=== PATIENT | male | born 1990 | race Caucasian/White ===

== ENCOUNTER 2017-05-25 02:18 | Emergency (ER) | payer OTHER ==
[~2017-05-25] VITALS: Ht 170.2 cm; Wt 70.3 kg
[~2017-05-25 02:18] MED LIST: ALBUTEROL SULF8.5 GM INH; AMOXICILLIN875 MG PO; COMBIVENT RESPIM4 GM INH; MELATONIN1 MG PO; NAPROSYN500 MG PO; NAPROXEN500 MG PO; NORCO 10-325 T1 EACH PO; NORCO 5-325 TA1 EACH PO; OMEPRAZOLE20 MG PO; PREDNISONE20 MG PO; PROVENTIL HFA6.7 GM INH; ULTRAM50 MG PO; VENTOLIN HFA18 GM IH
[2017-05-25] MEDS ORDERED: AMITRIPTYLINE H50 MG PO (02:31)
[2017-05-25] MEDS ORDERED: VENTOLIN HFA18 GM INH (02:32)
--- OUTSIDE RECORDS SUMMARY | 2017-05-25 02:34 | XMS ---
Demographics + + + | Address | [address] | | | [address] | | | [place] [address] | + + + | Preferred Language | Unknown | + + + | Marital Status | Unknown | + + + | Orthodox Affiliation | Unknown | + + + | Race | Unknown | + + + | Ethnic Group | Unknown | + + + Author + + + | Author | [facility] | + + + | Organization | [facility] | + + + | Address | [address] | | | [place] [address] | + + + | Phone | | + + + Care Team Providers + + + + | Care Credit Control Clerk Name | Role | Phone | + + + + Unavailable | Unavailable | + + + + PROBLEMS +---------+ + + +--------+ + + | Type | Condition | ICD9-CM | [id number] | Onset | Condition | SNOMED | | | | Code | Code | Dates | Status | Code | +---------+ + + +--------+ + + | Problem | Hip Pain | 719.45 | | | Active | 81251295 | +---------+ + + +--------+ + + | Problem | Depression | | F41.8 | | Active | 589289500 | | | with | | | | | | | | anxiety | | | | | | +---------+ + + +--------+ + + | Problem | Left ankle | | M25.572 | | Active | 298586082 | | | pain | | | | | | +---------+ + + +--------+ + + | 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 | | | | | | +---------+ + + +--------+ + + | Problem | Right hip | M25.551 | | | Active | 6154384952 | | | pain | | | | | 51020 | +---------+ + + +--------+ + + | Problem | Nausea | | R11.0 | | Active | 456266740 | +---------+ + + +--------+ + + | Problem | Asthma | | J45.909 | | Active | 867897479 | +---------+ + + +--------+ + + ALLERGIES No Information SOCIAL HISTORY Never Assessed PLAN OF CARE VITAL SIGNS MEDICATIONS Unknown Medications RESULTS No Results PROCEDURES No Known procedures IMMUNIZATIONS No Known Immunizations MEDICAL (GENERAL) HISTORY + + +--------+ | Type | Description | Date | + + +--------+ | Medical History | asthma | | + + +--------+ | Medical History | ADHD | | + + +--------+ | Medical History | migraine | | + + +--------+ | 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 He says he has no | | | | chronic medical conditions, | | | | does not have any | | | | allergies of which he is | | | | aware. He indicates that he | | | | just received his tetanus, | | | | so it is current as of | | | | about 5 minutes ago. | | + + +--------+ | Surgical History | tube in ears taken out and | | | | put back in | | + + +--------+ | Surgical History | T & A | | + + +--------+ | Hospitalization History | ER Visit- for Rt Wrist. | 11/30/16 | + + +--------+"
--- OUTSIDE RECORDS SUMMARY | 2017-05-25 02:34 | XMS ---
Demographics + + + | Address | [address] | | | [address] | | | [place] [address] | + + + | Preferred Language | Unknown | + + + | Marital Status | Unknown | + + + | Zoroastrian Affiliation | Unknown | + + + | Race | Unknown | + + + | Ethnic Group | Unknown | + + + Author + + + | Author | [facility] | + + + | Organization | [facility] | + + + | Address | [address] | | | [place] [address] | + + + | Phone | | + + + Care Team Providers + + + + | Care Finisher Machine Name | Role | Phone | + + + + Unavailable | Unavailable | + + + + PROBLEMS +---------+ + + +--------+ + + | Type | Condition | ICD9-CM | [id number] | Onset | Condition | SNOMED | | | | Code | Code | Dates | Status | Code | +---------+ + + +--------+ + + | Problem | Hip Pain | 719.45 | | | Active | 77108566 | +---------+ + + +--------+ + + | Problem | Depression | | F41.8 | | Active | 063395088 | | | with | | | | | | | | anxiety | | | | | | +---------+ + + +--------+ + + | Problem | Left ankle | | M25.572 | | Active | 290188320 | | | pain | | | | | | +---------+ + + +--------+ + + | 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
--- OUTSIDE RECORDS SUMMARY | 2017-05-25 02:34 | XMS ---
Demographics + + + | Address | [address] | | | [address] | | | [place] [address] | + + + | Preferred Language | Unknown | + + + | Marital Status | Unknown | + + + | Restoration Affiliation | Unknown | + + + | Race | Unknown | + + + | Ethnic Group | Unknown | + + + Author + + + | Author | [facility] | + + + | Organization | [facility] | + + + | Address | [address] | | | [place] [address] | + + + | Phone | | + + + Care Team Providers + + + + | Care Mannequin Maker Name | Role | Phone | + + + + Unavailable | Unavailable | + + + + PROBLEMS +---------+ + + +--------+ + + | Type | Condition | ICD9-CM | [id number] | Onset | Condition | SNOMED | | | | Code | Code | Dates | Status | Code | +---------+ + + +--------+ + + | Problem | Hip Pain | 719.45 | | | Active | 66831420 | +---------+ + + +--------+ + + | Problem | Depression | | F41.8 | | Active | 597593431 | | | with | | | | | | | | anxiety | | | | | | +---------+ + + +--------+ + + | Problem | Left ankle | | M25.572 | | Active | 426581206 | | | pain | | | | | | +---------+ + + +--------+ + + | 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
--- OUTSIDE RECORDS SUMMARY | 2017-05-25 02:34 | XMS ---
Demographics + + + | Address | [address] | | | [address] | | | [place] [address] | + + + | Preferred Language | Unknown | + + + | Marital Status | Unknown | + + + | Caodaism Affiliation | Unknown | + + + | Race | Unknown | + + + | Ethnic Group | Unknown | + + + Author + + + | Author | [facility] | + + + | Organization | [facility] | + + + | Address | [address] | | | [place] [address] | + + + | Phone | | + + + Care Team Providers + + + + | Care Airborne Sensor Specialist Name | Role | Phone | + + + + Unavailable | Unavailable | + + + + PROBLEMS +---------+ + + +--------+ + + | Type | Condition | ICD9-CM | [id number] | Onset | Condition | SNOMED | | | | Code | Code | Dates | Status | Code | +---------+ + + +--------+ + + | Problem | Hip Pain | 719.45 | | | Active | 29832584 | +---------+ + + +--------+ + + | Problem | Depression | | F41.8 | | Active | 710908397 | | | with | | | | | | | | anxiety | | | | | | +---------+ + + +--------+ + + | Problem | Left ankle | | M25.572 | | Active | 023071334 | | | pain | | | | | | +---------+ + + +--------+ + + | 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 | Unknown | Non Drug | Dec, | Unknown | | | | Allergy | | | + + + + +---------+ SOCIAL HISTORY No smoking Hx information available PLAN OF CARE + +---------+ | Activity | Details | + +---------+ +---+ | | +---+ + + + | Follow Up | 02/03/17 Reason:null | + + + | Pending Test | X ray : Spine Thoracic 2 view | + + + | Pending Test | X ray : Chest 2 views | + + + VITAL SIGNS + + + + | Height | 66 in | 2017-01-18 | + + + + | Weight | 166.2 lbs | 2017-01-18 | + + + + | BMI | 26.82 kg/m2 | 2017-01-18 | + + + + | Temperature | 98.9 degrees Fahrenheit | 2017-01-18 | + + + + | Heart Rate | 80 /min | 2017-01-18 | + + + + | Blood pressure systolic | 124 mm Hg | 2017-01-18 | + + + + | Blood pressure diastolic | 90 mm Hg | 2017-01-18 | + + + + MEDICATIONS + + + + + + + +--------+ | Medicati | Instruct | Dosage | Frequenc | Start | End Date | Duration | Status | | on | ions | | y | Date | | | | + + + + + + + +--------+ | Ondanset | Orally | 1 tablet | | Mar, | | | Active | | jenniffer 4 mg | every 8 | on the | | 2015 | | | | | | hrs as | tongue | | | | | | | | needed | and | | | | | | | | for | allow to | | | | | | | | nausea | | | | | | | | | or | dissolve | | | | | | | | vomiting | | | | | | | + + + + + + + +--------+ | Albutero | Inhalati | 3 ml | | 20 Apr, | | | Active | | l | on Three | | | 2015 | | | | | Sulfate | times a | | | | | | | | (2.5 | day PRN | | | | | | | | MG/3ML) | | | | | | | | | 0.083% | SOB/whee | | | | | | | | | zing | | | | | | | + + + + + + + +--------+ | Clonazep | Orally | 1 tablet | | Aug, | | 14 days | Active | | am 0.25 | daily | on the | | 2016 | | | | | MG | PRN | tongue | | | | | | | | anxiety | and | | | | | | | | | allow to | | | | | | | | | | | | | | | | | | dissolve | | | | | | + + + + + + + +--------+ | Combiven | Inhalati | 1 puff | 6h | Mar, | | 30 days | Active | | t | on Four | | | 2015 | | | | | Respimat | times a | | | | | | | | 20-100 | day | | | | | | | | MCG/ACT | | | | | | | | + + + + + + + +--------+ | ProAir | Inhalati | 2 puffs | 4h | | | 30 days | Active | | HFA 108 | on every | as | | | | | | | (90 | 4 hrs | needed | | | | | | | Base) | | | | | | | | | MCG/ACT | | | | | | | | + + + + + + + +--------+ | Tramadol | Orally | 1 tablet | 6h | 14 Angelo, | | | Active | | HCl 50 | every 6 | as | | 2017 | | | | | MG | hrs | needed | | | | | | + + + + + + + +--------+ | Keflex | Orally | 1 | 6h | | | | Active | | 500 MG | every 6 | capsule | | | | | | | | hrs | | | | | | | + + + + + + + +--------+ | Breo | Inhalati | 1 puff | 24h | 26 Angelo, | | | Active | | Ellipta | on Once | | | 2017 | | | | | 100-25 | a day | | | | | | | | MCG/INH | | | | | | | | + + + + + + + +--------+ | [place] | Orally | 1 tablet | 6h | 17 November, | | | Active | | 7.5-325 | every 6 | as | | 2017 | | | | | MG | hrs | needed | | | | | | + + + + + + + +--------+ | BusPIRon | Orally | 1 tablet | 12h | 24 Aug, | | 30 | Active | | e HCl 10 | Twice a | | | 2016 | | day(s) | | | mg | day | | | | | | | + + + + + + + +--------+ RESULTS No Results PROCEDURES + + + + + | Procedure | Date Ordered | Related Diagnosis | Body Site | + + + + + | Est Level IV | January 18, 2017 | | | | Extended | | | | + + + + + | DSCHRG MED/CURRENT | January 18, 2017 | | | | MED MERGE | | | | + + + + + | DOC MEDS VERIFIED | January 18, 2017 | | | | W/PT OR RE | | | | + + + + + IMMUNIZATIONS No Known Immunizations"
--- OUTSIDE RECORDS SUMMARY | 2017-05-25 02:34 | XMS ---
Demographics + + + | Address | [address] | | | [address] | | | [place] [address] | + + + | Preferred Language | Unknown | + + + | Marital Status | Unknown | + + + | Church Affiliation | Unknown | + + + | Race | Unknown | + + + | Ethnic Group | Unknown | + + + Author + + + | Author | [facility] | + + + | Organization | [facility] | + + + | Address | [address] | | | [place] [address] | + + + | Phone | | + + + Care Team Providers + + + + | Care Management Psychologist Name | Role | Phone | + + + + Unavailable | Unavailable | + + + + PROBLEMS +---------+ + + +--------+ + + | Type | Condition | ICD9-CM | [id number] | Onset | Condition | SNOMED | | | | Code | Code | Dates | Status | Code | +---------+ + + +--------+ + + | Problem | Hip Pain | 719.45 | | | Active | 35858073 | +---------+ + + +--------+ + + | Problem | Depression | | F41.8 | | Active | 485314978 | | | with | | | | | | | | anxiety | | | | | | +---------+ + + +--------+ + + | Problem | Left ankle | | M25.572 | | Active | 223887177 | | | pain | | | | | | +---------+ + + +--------+ + + | 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 | Unknown | Non Drug | Jan, | Unknown | | | | Allergy | | | + + + + +---------+ SOCIAL HISTORY No smoking Hx information available PLAN OF CARE + +---------+ | Activity | Details | + +---------+ +---+ | | +---+ + + + | Follow Up | 3 Months Reason:null | + + + VITAL SIGNS + + + + | Height | 66 in | 2017-02-04 | + + + + | Weight | 167.4 lbs | 2017-02-04 | + + + + | BMI | 27.02 kg/m2 | 2017-02-04 | + + + + | Temperature | 97.7 degrees Fahrenheit | 2017-02-04 | + + + + | Heart Rate | 80 /min | 2017-02-04 | + + + + | Blood pressure systolic | 120 mm Hg | 2017-02-04 | + + + + | Blood pressure diastolic | 83 mm Hg | 2017-02-04 | + + + + MEDICATIONS + + + + + + + +--------+ | Medicati | Instruct | Dosage | Frequenc | Start | End Date | Duration | Status | | on | ions | | y | Date | | | | + + + + + + + +--------+ | Clonazep | Orally | 1 tablet | | 01 Feb, | | 14 days | Active | [...] | 1 tablet | 12h | 24 Feb, | | 30 | Active | | [...] Inhalati | 1 puff | 6h | Sep, | | 30 days | Active | [...] | Orally | 1 tablet | | 08 Sep, | | | Active | | jenniffer [...] Inhalati | 1 puff | 24h | | | | Active | | Ellipta | on Once | | | | | | | | 100-25 | a day | | | | | | | | MCG/INH | | | | | | | | + + + + + + + +--------+ | Breo | Inhalati | 1 puff | 24h | Jan, | Jul, | 30 days | Active | | Ellipta | on Once | | | 2016 | 2018 | | | | 100-25 | a day | | | | | | | | MCG/INH | | | | | | | | + + + + + + + +--------+ | Tramadol | Orally | 1 tablet | 6h | Jan, | | | Active | | HCl 50 | every 6 | as | | 2016 | | | | [...] + + + + | Est Level III | February 04, 2017 | | | | Intermediate | | | | + + + + + | DSCHRG MED/CURRENT | February 04, 2017 | | | | MED MERGE | | | | + + + + + | DOC MEDS VERIFIED | February 04, 2017 | | | | W/PT OR RE | | | | + + + + + IMMUNIZATIONS No Known Immunizations"
--- OUTSIDE RECORDS SUMMARY | 2017-05-25 02:34 | XMS ---
Demographics + + + | Address | [address] | | | [address] | | | [place] [address] | + + + | Preferred Language | Unknown | + + + | Marital Status | Unknown | + + + | Spiritism Affiliation | Unknown | + + + | Race | Unknown | + + + | Ethnic Group | Unknown | + + + Author + + + | Author | [facility] | + + + | Organization | [facility] | + + + | Address | [address] | | | [place] [address] | + + + | Phone | | + + + Care Team Providers + + + + | Care Fretted Instrument Repairer Name | Role | Phone | + + + + Unavailable | Unavailable | + + + + PROBLEMS +---------+ + + +--------+ + + | Type | Condition | ICD9-CM | [id number] | Onset | Condition | SNOMED | | | | Code | Code | Dates | Status | Code | +---------+ + + +--------+ + + | Problem | Hip Pain | 719.45 | | | Active | 23743091 | +---------+ + + +--------+ + + | Problem | Depression | | F41.8 | | Active | 066420417 | | | with | | | | | | | | anxiety | | | | | | +---------+ + + +--------+ + + | Problem | Left ankle | | M25.572 | | Active | 925875116 | | | pain | | | | | | +---------+ + + +--------+ + + | 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
[2017-05-25] MEDS ORDERED: PREDNISONE20 MG PO (03:58)
[2017-08-02] MEDS ORDERED: TRAMADOL HCL50 MG PO (01:25)
[2017-08-02] MEDS ORDERED: PREDNISONE20 MG PO (02:53)
== END 2017-05-25 04:15 | disposition home or self-care (01) ==
LOC: ED 02:18
DX: J45.901 Unspecified asthma with (acute) exacerbation (principal); F17.200 Nicotine dependence, unspecified, uncomplicated
CPT/HCPCS: 94644; 99283; J7512

== ENCOUNTER 2017-06-18 02:29 | Emergency (ER) | payer OTHER ==
[~2017-06-18] VITALS: Ht 170.2 cm; Wt 99.8 kg
[~2017-06-18 02:29] MED LIST changes: +AMITRIPTYLINE H50 MG PO; +VENTOLIN HFA18 GM INH
[2017-06-18] MEDS ORDERED: NEURONTIN100 MG PO (02:38)
[2017-06-18] MEDS ORDERED: PREDNISONE20 MG PO (03:19)
[2017-06-18] MEDS ORDERED: IPRAT-ALBUT 0.5-3 ML INH (03:27)
[2017-08-02] MEDS ORDERED: TRAMADOL HCL50 MG PO (01:25)
[2017-08-02] MEDS ORDERED: PREDNISONE20 MG PO (02:53)
== END 2017-06-18 03:44 | disposition home or self-care (01) ==
LOC: ED 02:29
DX: J45.901 Unspecified asthma with (acute) exacerbation (principal); Z90.89 Acquired absence of other organs; Z79.899 Other long term (current) drug therapy
CPT/HCPCS: 94640; 99283; J7512

== ENCOUNTER → 2017-08-02 | Emergency (ER) | payer OTHER ==
[~2017-08-02] VITALS: Ht 170.2 cm; Wt 79.4 kg
[~2017-08-02] MED LIST changes: +IPRAT-ALBUT 0.5-3 ML INH; +KETOROLAC TROME10 MG PO; +MEDROL4 M1 PO; +NEURONTIN100 MG PO; +TRAMADOL HCL50 MG PO
== END ==
LOC: ED 01:12
DX: J45.901 Unspecified asthma with (acute) exacerbation (principal); Z87.891 Personal history of nicotine dependence; Z90.89 Acquired absence of other organs; Z79.899 Other long term (current) drug therapy
CPT/HCPCS: 94644; 99283; J7512

== ENCOUNTER 2017-08-22 00:55 | Emergency (ER) | payer OTHER ==
[~2017-08-22] VITALS: Ht 170.2 cm; Wt 79.4 kg
[~2017-08-22 00:55] MED LIST changes: -KETOROLAC TROME10 MG PO; -MEDROL4 M1 PO
--- OUTSIDE RECORDS SUMMARY | 2017-08-22 01:23 | XMS | Clinical Summary ---
Demographics + + + | Address | [address] | | | [place] [address] | + + + | Home Phone | | + + + | Preferred Language | Unknown | + + + | Marital Status | Single | + + + | Mandaen Affiliation | CAT | + + + | Race | White | + + + | Ethnic Group | Not or | + + + Author + + + | Organization | Unknown | + + + | Address | Unknown | + + + | Phone | Unavailable | + + + Support +------+ +---------+ + +---------+ | Name | Relationship | Address | Phone | +------+ +---------+ + +---------+ ECON | [address] | | [place] | [address] | +------+ +---------+ + +---------+ Care Team Providers + +------+ + | Care Video Game Maker Name | Role | Phone | + +------+ + PP | Unavailable | + +------+ + Source Comments CINTHIA is fully live on both [facility] and [facility] InPatient.[facility] Allergies No Known Allergies Current Medications Not on file Active Problems Not on file Social History + +-------+ +--------+------+ | Tobacco Use | Types | Packs/Day | Years | Date | | | | | Used | | + +-------+ +--------+------+ | Never Assessed | | | | | + +-------+ +--------+------+ + + + | Sex Assigned at | Date Recorded | | | | + + + | Not on file | | + + + Plan of Treatment + + + + + | Health Maintenance | Due Date | Last Done | Comments | + + + + + | INFLUENZA VACCINE | | | | | (FLU SHOT) | 7 | | | + + + + + Results Not on filefrom Last 3 Months"
--- OUTSIDE RECORDS SUMMARY | 2017-08-22 01:23 | XMS | Clinical Summary ---
Demographics + + + | Address | [address] | | | [place] [address] | + + + | Home Phone | | + + + | Preferred Language | Unknown | + + + | Marital Status | Single | + + + | Christianity Affiliation | CAT | + + + [...] [address] | | [place] | [address] | +------+ +---------+ + +---------+ Care Team Providers + +------+ + | Care Personal Driver Name | Role | Phone | + +------+ + PP | Unavailable | + +------+ + Source Comments CINTHIA is fully live on both [facility] Amb[facility] and [facility] InPatient.[facility] Allergies No Known Allergies Current [...]
[2017-08-22] MEDS ORDERED: MEDROL4 M1 PO (01:41)
== END 2017-08-22 01:45 | disposition home or self-care (01) ==
LOC: ED 00:55
DX: J45.31 Mild persistent asthma with (acute) exacerbation (principal); Z87.891 Personal history of nicotine dependence; Z79.899 Other long term (current) drug therapy
CPT/HCPCS: 94640; 99283; J7512

== ENCOUNTER 2017-08-30 09:09 | Emergency (ER) | payer OTHER ==
[~2017-08-30] VITALS: Ht 170.2 cm; Wt 79.4 kg
--- OUTSIDE RECORDS SUMMARY | ~2017-08-30 | XMS | Clinical Summary ---
Demographics + + + | Address | [address] | | | [place] [address] | + + + | Home Phone | | + + + | Preferred Language | Unknown | + + + | Marital Status | Single | + + + | Scientologist Affiliation | CAT | + + + [...] [address] | | [place] | [address] | +------+ +---------+ + +---------+ Care Team Providers + +------+ + | Care Safety Advisor Name | Role | Phone | + +------+ + PP | Unavailable | + +------+ + Source Comments CINTHIA is fully live on both [facility] Ambulatory and [facility] InPatient.[facility] Allergies No Known Allergies Current Medications Not [...]
--- OUTSIDE RECORDS SUMMARY | ~2017-08-30 | XMS | Clinical Summary ---
Demographics + + + | Address | [address] | | | [place] [address] | + + + | Home Phone | | + + + | Preferred Language | Unknown | + + + | Marital Status | Single | + + + | Temple Affiliation | CAT | + + + [...] [address] | | [place] | [address] | +------+ +---------+ + +---------+ Care Team Providers + +------+ + | Care Port Cdl A Driver Name | Role | Phone | + +------+ + PP | Unavailable | + +------+ + Source Comments CINTHIA is fully live on both [facility] Amb[facility] and [facility] InPatient.[facility] Allergies No Known Allergies Current [...]
[~2017-08-30 09:09] MED LIST changes: +MEDROL4 M1 PO
[2017-08-30] MEDS ORDERED: VENTOLIN HFA18 GM INH (09:32)
[2017-08-30] MEDS ORDERED: KETOROLAC TROME10 MG PO (09:32)
== END 2017-08-30 09:40 | disposition home or self-care (01) ==
LOC: ED 09:09
DX: Z76.0 Encounter for issue of repeat prescription (principal); J45.909 Unspecified asthma, uncomplicated; Z87.891 Personal history of nicotine dependence; Z79.899 Other long term (current) drug therapy
CPT/HCPCS: 99281

== ENCOUNTER → 2017-10-01 | Emergency (ER) | payer OTHER ==
[~2017-10-01] VITALS: Ht 170.2 cm; Wt 79.4 kg
[~2017-10-01] MED LIST changes: +KETOROLAC TROME10 MG PO
--- OUTSIDE RECORDS SUMMARY | 2017-10-01 03:21 | XMS | Clinical Summary ---
Demographics + + + | Address | [address] | | | [place] [address] | + + + | Home Phone | | + + + | Preferred Language | Unknown | + + + | Marital Status | Single | + + + | Jain Affiliation | CAT | + + + | Race | White | + + + | Ethnic Group | Not or | + + + Author + + + | Organization | Unknown | + + + | Address | Unknown | + + + | Phone | Unavailable | + + + Support + + + + + | Name | Relationship | Address | Phone | + + + + + | [place] [address]AC[address] | [address] | [address] | | | | | [place] | | | | | [address] | | + + + + + Care Team Providers + +------+ + | Care Towel Weaver Name | Role | Phone | + +------+ + PP | Unavailable | + +------+ + Source Comments CINTHIA is fully live on both [facility] Amb[facility] and [facility] InPatient.[facility] Allergies No Known Allergies Current [...]
--- OUTSIDE RECORDS SUMMARY | 2017-10-01 03:21 | XMS | Clinical Summary ---
Demographics + + + | Address | [address] | | | [place] [address] | + + + | Home Phone | | + + + | Preferred Language | Unknown | + + + | Marital Status | Single | + + + | Hindu Affiliation | CAT | + + + [...] [place] | | | | | [address] | | + + + + + Care Team Providers + +------+ + | Care Manager Of Applications Development Name | Role | Phone | + +------+ + PP | Unavailable | + +------+ + Source Comments CINTHIA is fully live on both [facility] Ambulatory and [facility] InPatient.[facility] Allergies No Known Allergies Current Medications [...]
== END ==
LOC: ED 02:32
DX: J45.901 Unspecified asthma with (acute) exacerbation (principal); Z87.891 Personal history of nicotine dependence; Z79.899 Other long term (current) drug therapy
CPT/HCPCS: 71046; 99283

== ENCOUNTER 2017-12-04 17:44 | Emergency (ER) | payer OTHER ==
[~2017-12-04] VITALS: Ht 170.2 cm; Wt 79.4 kg
[2017-12-04] MEDS ORDERED: KETOROLAC TROME10 MG PO (18:23)
== END 2017-12-04 18:33 | disposition home or self-care (01) ==
LOC: ED 17:44
DX: S93.401A Sprain of unspecified ligament of right ankle, initial encounter (principal); J45.909 Unspecified asthma, uncomplicated; Z79.899 Other long term (current) drug therapy; Z87.891 Personal history of nicotine dependence; X50.1XXA Overexertion from prolonged static or awkward postures, initial encounter; Y93.01 Activity, walking, marching and hiking
CPT/HCPCS: 73630; 99283

== ENCOUNTER 2019-01-04 15:34 | Emergency (ER) | payer OTHER ==
[~2019-01-04] VITALS: Ht 170.2 cm; Wt 79.4 kg
--- OUTSIDE RECORDS SUMMARY | 2019-01-04 15:36 | XMS ---
PreManage Notification: ADILSON JACOB Security Video Editor Events No recent Security Events currently on file CRITERIA MET - [facility] - Has Care Guidelines CARE PROVIDERS TAE CAMPOVERDE DO Primary Care Current PHONE: [phone] [facility] Current Orthopedic Surgery \T\ Fracture Clinic PHONE: Unknown Tamanna has no Care Guidelines for this patient. Care History Medical/Surgical 12/06/2017 [facility] Care Recommendation: This patient has had 5 or more Emergency Department visits in the last 12 months. Patient requires education on the scope and purpose of the ED as an acute care provider not a Primary Care Provider and should not be utilized for chronic conditions. If patient returns to ED please contact Community Health WorkerJenny at [phone]. These are guidelines and the provider should exercise clinical judgment when providing care. E.D. VISIT COUNT (12 MO.) 1 NATALIA Hilliard TOTAL 1 NOTE: Visits indicate total known visits. ED/UCC VISIT TRACKING (12 MO.) 01/04/2019 15:35 NATALIA Manzanares [place] TYPE: Emergency COMPLAINT: - FACIAL INJURIES INPATIENT VISIT TRACKING (12 MO.) No inpatient visits to display in this time frame [id number]
[2019-01-04] MEDS ORDERED: IBUPROFEN600 MG PO (16:55)
[2019-01-04] MEDS ORDERED: ULTRAM50 MG PO (16:55)
== END 2019-01-04 17:08 | disposition home or self-care (01) ==
LOC: ED 15:34
DX: S16.1XXA Strain of muscle, fascia and tendon at neck level, initial encounter (principal); S70.02XA Contusion of left hip, initial encounter; S00.83XA Contusion of other part of head, initial encounter; R07.89 Other chest pain; Y04.8XXA Assault by other bodily force, initial encounter; J45.909 Unspecified asthma, uncomplicated; Z87.891 Personal history of nicotine dependence; Z79.899 Other long term (current) drug therapy
CPT/HCPCS: 70450; 71045; 72040; 72170; 99284-25

== ENCOUNTER 2019-01-09 10:50 | Emergency (ER) | payer MEDICARE, OTHER ==
[~2019-01-09] VITALS: Ht 170.2 cm; Wt 81.7 kg
[~2019-01-09 10:50] MED LIST changes: +IBUPROFEN600 MG PO
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
[2019-01-09] MEDS ORDERED: INDOMETHACIN50 MG PO (11:51)
== END 2019-01-09 12:00 | disposition home or self-care (01) ==
LOC: ED 10:50
DX: S89.91XA Unspecified injury of right lower leg, initial encounter (principal); S89.92XA Unspecified injury of left lower leg, initial encounter; W01.198A Fall on same level from slipping, tripping and stumbling with subsequent striking against other object, initial encounter
CPT/HCPCS: 99283

== ENCOUNTER 2019-01-10 11:25 | Emergency (ER) | payer MEDICARE, OTHER ==
[~2019-01-10] VITALS: Ht 170.2 cm; Wt 81.7 kg
[~2019-01-10 11:25] MED LIST changes: +INDOMETHACIN50 MG PO
--- OUTSIDE RECORDS SUMMARY | 2019-01-10 11:28 | XMS ---
PreManage Notification: ADILSON JACOB Security Consolidation Accountant Events No recent Security Events currently on file CRITERIA MET - [facility] - Has Care Guidelines - [facility] - 2 Visits in 30 Days CARE PROVIDERS LUIS ENRIQUE العراقي Nurse Practitioner: 01/05/2019-Current PHONE: Unknown TAE CAMPOVERDE DO Primary Care Current PHONE: [phone] [facility] Other Current Orthopedic Surgery \T\ Fracture Clinic PHONE: Unknown Tamanna has no Care Guidelines for this patient. Care History Medical/Surgical 01/05/2019 [facility] - CHW CONTACTED PATIENT-DISCUSSED PCP USAGE AND NEED. - PATIENT HAD PCP LUIS ENRIQUE العراقي IN THE PAST BUT HAS NOT SEEN PROVIDER SINCE 2017. - CHW CONTACTED THE CLINIC REQUESTED TO HAVE LUIS ENRIQUE العراقي REVIEW TO SEE IF HE WOULD RE ESTABLISH CARE WITH PATIENT. 12/06/2017 [facility] Care Recommendation: This patient has had 5 or more Emergency Department visits in the last 12 months. Patient requires education on the scope and purpose of the ED as an acute care provider not a Primary Care Provider and should not be utilized for chronic conditions. If patient returns to ED please contact Community Health WorkerJenny at [phone]. These are guidelines and the provider should exercise clinical judgment when providing care. E.D. VISIT COUNT (12 MO.) 3 [facility]. TOTAL 3 NOTE: Visits indicate total known visits. ED/UCC VISIT TRACKING (12 MO.) 01/10/2019 11:25 [facility] [place] TYPE: Emergency COMPLAINT: - R LEG PAIN 01/09/2019 10:51 [facility] [place] TYPE: Emergency [...] level, initial encounter - Headache - Other breaker machine tender (current) drug therapy - Other chest pain - Contusion of left hip, initial encounter INPATIENT VISIT TRACKING (12 MO.) No inpatient visits to display in this time frame [email or web address]
== END 2019-01-10 14:23 | disposition home or self-care (01) ==
LOC: ED 11:25
DX: M25.572 Pain in left ankle and joints of left foot (principal); M79.651 Pain in right thigh

== ENCOUNTER 2019-01-10 11:43 | Emergency (ER) | payer MEDICARE, OTHER ==
[~2019-01-10] VITALS: Ht 170.2 cm; Wt 81.7 kg
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
== END 2019-01-10 13:48 | disposition home or self-care (01) ==
LOC: ED 11:43
DX: S79.921A Unspecified injury of right thigh, initial encounter (principal); W17.89XA Other fall from one level to another, initial encounter; J45.909 Unspecified asthma, uncomplicated; Z87.891 Personal history of nicotine dependence; Z79.899 Other long term (current) drug therapy
CPT/HCPCS: 73552; 99283-25

== ENCOUNTER 2019-06-07 06:02 | Emergency (ER) | payer MEDICARE, OTHER ==
[~2019-06-07] VITALS: Ht 170.2 cm; Wt 81.7 kg
--- OUTSIDE RECORDS SUMMARY | ~2019-06-07 | XMS | Encounter Summary ---
Demographics + + + | Address | [address] | | | [place] [address] | + + + | Home Phone | | + + + | Preferred Language | Unknown | + + + | Marital Status | Single | + + + | Adventism Affiliation | CAT | + + + | Race | White | + + + | Ethnic Group | Not or | + + + Author + + + | Author | [facility] | + + + | Organization | [facility] | + + + | Address | Unknown | + + + | Phone | Unavailable | + + + Support + + + + + | Name | Relationship | Address | Phone | + + + + + | Malinda Perdomo | ECON | [address] | | | | | [place] | | | | | [address] | | + + + + + Care Team Providers + +------+ + | Care Manager R D Name | Role | Phone | + +------+ + PCP | Unavailable | + +------+ + Encounter Details +--------+ + + + + | Date | Type | Department | Care Team | Description | +--------+ + + + + | 11/06/ | Results | Registration [id number] | | | | 1993 | Only | [address] | | | | | | [address] Mailcode: [id number] | | | | | | [place], [place] | | | | | | [address] | | | | | | [phone] | | | +--------+ + + + + Social History + +-------+ +--------+------+ | Tobacco [...] on file | | + + + + + + + | Job Start Date | Occupation | Industry | + + + + | Not on file | Not on file | Not on file | + + + + + + + + | Travel History | Travel Start | Travel End | + + + + + + | No recent travel history available. | + + documented as of this encounter Plan of Treatment Not on filedocumented as of this encounter Procedures + +--------+ + + + | Procedure Name | Priori | Date/Time | Associated Diagnosis | Comments | | | ty | | | | + +--------+ + + + | IMMUNOLOGY TESTS 2 | Routin | 11/09/1995 | | Results for this | | | e | 12:00 PM | | procedure are in the | | | | PDT | | results section. | + +--------+ + + + | CHEMISTRY TESTS 4 | Routin | 11/07/1995 | | Results for this | | | e | 11:45 AM | | procedure are in the | | | | PDT | | results section. | + +--------+ + + + | CBC TESTS 2 | Routin | 11/07/1995 | | Results for this | | | e | 11:45 AM | | procedure are in the | | | | PDT | | results section. | + +--------+ + + + | CHEMISTRY TESTS 2 | Routin | 11/07/1995 | | Results for this | | | e | 11:45 AM | | procedure are in the | | | | PDT | | results section. | + +--------+ + + + documented in this encounter Results IMMUNOLOGY TESTS 2 (11/09/1995 12:00 PM PDT) + +-------+ + + + | Component | Value | Ref Range | Performed | Pathologist | | | | | At | Signature | + +-------+ + + + | ROTAVIRUS | NEG | | | | | ASSAY | | | | | + +-------+ + + + + + | Specimen | + + | | + + + + + + + | Performing | Address | City/State/Zipcode | Phone Number | | Organization | | | | + + + + + | [facility] | [address] | [place] [address] | | | PATHOLOGY | [address] | | | + + + + + CBC TESTS 2 (11/07/1995 11:45 AM PDT) + + + + + + | Component | Value | Ref Range | Performed | Pathologist | | | | | At | Signature | + + + + + + | WHITE CELL | 8.8 | K/CU MM | | | | COUNT | | | | | + + + + + + | RED CELL | 3.47 (L) | M/CU MM | | | | COUNT | | | | | + + + + + + | HEMOGLOBIN | 8.8 (L) | GM/DL | | | + + + + + + | HEMATOCRIT | 26.2 (L) | % | | | + + + + + + | MCV | 75.3 (L) | FL | | | + + + + + + | MCH | 25.4 (L) | PG | | | + + + + + + | MCHC | 33.7 | GM/DL | | | + + + + + + | RDW | 13.4 | % | | | + + + + + + | PLATELET | 211. (L) | K/CU MM | | | | COUNT | | | | | + + + + + + | MPV | 7.8 | FL | | | + + + + + + + + | Specimen | + + | | + + + + + + + | Performing | Address | City/State/Zipcode | Phone Number | | Organization | | | | + + + + + | [facility] | [address] | [place] [address] | | | PATHOLOGY | [address] | | | + + + + + CHEMISTRY TESTS 2 (11/07/1995 11:45 AM PDT) + + + + + + | Component | Value | Ref Range | Performed | Pathologist | | | | | At | Signature | + + + + + + | CHOLESTEROL | 110. (L) | mg/dL | | | | (LAB) | | | | | + + + + + + + + | Specimen | + + | | + + + + + + + | Performing | Address | City/State/Zipcode | Phone Number | | Organization | | | | + + + + + | [facility] | [address] | [place], [place] [address] | | | PATHOLOGY | [address] | | | + + + + + CHEMISTRY TESTS 4 (11/07/1995 11:45 AM PDT) + + + + + + | Component | Value | Ref Range | Performed | Pathologist | | | | | At | Signature | + + + + + + | SODIUM, | 132. (L) | mmol/l | | | | PLASMA | | | | | | (LAB) | | | | | + + + + + + | POTASSIUM, | 4.9 (H) | mmol/l | | | | PLASMA | | | | | | (LAB) | | | | | + + + + + + | CHLORIDE, | 104. | mmol/l | | | | PLASMA | | | | | | (LAB) | | | | | + + + + + + | TOTAL CO2, | 20. (L) | mmol/l | | | | PLASMA | | | | | | (LAB) | | | | | + + + + + + | BUN, PLASMA | 7. | mg/dL | | | | (LAB) | | | | | + + + + + + | CREATININE | 0.5 | mg/dL | | | | PLASMA | | | | | | (LAB) | | | | | + + + + + + | GLUCOSE, | 272. (H) | mg/dL | | | | PLASMA | | | | | | (LAB) | | | | | + + + + + + | CALCIUM, | 8.7 | mg/dL | | | | PLASMA | | | | | | (LAB) | | | | | + + + + + + | MAGNESIUM,P | 2.1 | mg/dL | | | | LASMA | | | | | + + + + + + | PHOSPHORUS, | 2.9 (L) | mg/dL | | | | PLASMA | | | | | | (LAB) | | | | | + + + + + + | URIC ACID, | 3.6 | mg/dL | | | | PLASMA | | | | | | (LAB) | | | | | + + + + + + | AST(SGOT) | 40. | U/L | | | + + + + + + | ALT (SGPT) | 14. | U/L | | | + + + + + + | ALK PHOS | 265. | U/L | | | + + + + + + | LD TOTAL, | 352. | U/L | | | | PLASMA | | | | | + + + + + + | BILIRUBIN | 0.1 | mg/dL | | | | DIRECT | | | | | + + + + + + | BILIRUBIN | 0.6 | mg/dL | | | | TOTAL | | | | | + + + + + + | TOTAL | 5.6 (L) | GM/DL | | | | PROTEIN, | | | | | | PLASMA | | | | | | (LAB) | | | | | + + + + + + | ALBUMIN, | 3.4 (L) | GM/DL | | | | PLASMA | | | | | | (LAB) | | | | | + + + + + + + + | Specimen | + + | | + + + + + + + | Performing | Address | City/State/Zipcode | Phone Number | | Organization | | | | + + + + + | [facility] | [address] | [place] [address] | | | PATHOLOGY | [address] | | | + + + + + documented in this encounter Visit Diagnoses Not on filedocumented in this encounter"
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
--- OUTSIDE RECORDS SUMMARY | ~2019-06-07 | XMS | Encounter Summary ---
Demographics + + + | Address | [address] | | | [place] [address] | + + + | Home Phone | | + + + | Preferred Language | Unknown | + + + | Marital Status | Single | + + + | Gnosticist Affiliation | [id number] | + + + | Race | Unknown | + + + | Ethnic Group | Unknown | + + + Author + + + | Author | [facility] | | | and [place] | + + + | Organization | [facility] | | | and [place] | + + + | Address | Unknown | + + + | Phone | Unavailable | + + + Support + + +---------+ + | Name | Relationship | Address | Phone | + + +---------+ + | Yumiko Perdomo | ECON | Unknown | | + + +---------+ + Care Team Providers + +------+ + | Care Desizing Machine Operator Name | Role | Phone | + +------+ + | Juan Underwood NP | PCP | | + +------+ + Reason for Visit +--------+ + | Reason | Comments | +--------+ + | Asthma | Consult | +--------+ + Evaluate & Treat (Routine) +--------+--------+ + + + + | Status | Reason | Specialty | Diagnoses / | Referred By | Referred To | | | | | Procedures | Contact | Contact | +--------+--------+ + + + + | Closed | | Pulmonology | Diagnoses | Yasmine, | [place], | | | | | Unspecified | Juan Fournier | Yazan | | | | | asthma, | [address] | MD Josh | | | | | uncomplicate | [facility] | [address] | | | | | [address] | [address], | [place] | | | | | Procedures | [address] | [place], [place] | | | | | NEW PT | [place], | [address] Phone: | | | | | CONSULT | [place] [address] | [phone] | | | | | | Phone: | Fax: | | | | | | [phone] | [phone] | | | | | | Fax: | | | | | | | [phone] | | +--------+--------+ + + + + Encounter Details +--------+---------+ + + + | Date | Type | Department | Care Team | Description | +--------+---------+ + + + | 10/29/ | Office | [facility] | Yazan Martel | Needs flu shot | | 2018 | Visit | PULMONARY [address] | [address] | (Primary Dx); | | | | [place], | [place] | Moderate persistent | | | | [place] [address] | [place] [address] | asthma with acute | | | | [phone] | [phone] | exacerbation; Other | | | | | | tobacco product | | | | | | nicotine dependence, | | | | | | uncomplicated | +--------+---------+ + + + Social History + + + +--------+ + | Tobacco Use | Types | Packs/Day | Years | Date | | | | | Used | | + + + +--------+ + | Former Smoker | Cigarettes | 0.25 | | 1999 - 05/17/2017 | + + + +--------+ + + +------+---+---+ | Smokeless Tobacco: | Chew | | | | Current User | | | | + +------+---+---+ + + | Tobacco Cessation: Ready to Quit: Yes; Counseling Given: No | | Comments: 10/29/17: "I'm vaping 3% Nicotine" | + + + + +---------+ + | Alcohol Use | Drinks/Week | oz/Week | Comments | + + +---------+ + | Yes | | | | + + +---------+ + + + + | Sex Assigned at [...] + + documented as of this encounter Last Filed Vital Signs + + + + + | Vital Sign | Reading | Time Taken | Comments | + + + + + | Blood Pressure | 130/90 | 10/29/2017 12:56 PM | | | | | PDT | | + + + + + | Pulse | 90 | 10/29/2017 12:56 PM | | | | | PDT | | + + + + + | Temperature | 36.7 C (98.1 F) | 10/29/2017 12:56 PM | | | | | PDT | | + + + + + | Respiratory Rate | - | - | | + + + + + | Oxygen Saturation | 96% | 10/29/2017 12:56 PM | | | | | PDT | | + + + + + | Inhaled Oxygen | - | - | | | Concentration | | | | + + + + + | Weight | 86.1 kg (189 lb 13.1 | 10/29/2017 12:56 PM | | | | oz) | PDT | | + + + + + | Height | 170.2 cm (5' 7") | 10/29/2017 12:56 PM | | | | | PDT | | + + + + + | Body Mass Index | 29.73 | 10/29/2017 12:56 PM | | | | | PDT | | + + + + + documented in this encounter Plan of Treatment Not on filedocumented as of this encounter Visit Diagnoses + + | Diagnosis | + + | Needs flu shot - Primary Need for prophylactic vaccination and inoculation against | | influenza | + + | Moderate persistent asthma with acute exacerbation | + + | Other tobacco product nicotine dependence, uncomplicated | + + documented in this encounter
--- OUTSIDE RECORDS SUMMARY | ~2019-06-07 | XMS | Encounter Summary ---
Demographics + + + | Address | [address] [facility] [address] | | | [place] [address] | + + + | Home Phone | | + + + | Preferred Language | Unknown | + + + | Marital Status | Single | + + + | Lutheran Affiliation | 1041 | + + + | Race | Unknown | + + + | Ethnic Group | Unknown | + + + Author + + + | Author | [facility] | | | and [place] | + + + | Organization | [facility] | | | and [place] [...] Team Providers + +------+ + | Care Caddie Supervisor Name | Role | Phone | + +------+ + | Juan Underwood NP | PCP | | + +------+ + Encounter Details +--------+ + + + + | Date | Type | Department | Care Team | Description | +--------+ + + + + | 02/01/ | Imaging | [facility] | Provider, | | | 2017 | Exam | [facility] | [address] | | | | | IMAGING | Sergey SINGH | | | | | [phone] | [place] [address] | | +--------+ + + + + [...] | + +--------+ + + + | XR CHEST 2 VIEWS | Routin | 04/16/2016 | | Results for this | | | e | 4:45 PM | | procedure are in the | | | | PDT | | results section. | + +--------+ + + + documented in this encounter Results XR Chest 2 VW (04/16/2016 4:45 PM PDT) + + | Specimen | + + | | + + + + + | Narrative | Performed At | + + + | External films for comparison only - no result from [facility]. | [facility] | + + + + +---------+ + + | Performing | Address | City/State/Zipcode | Phone Number | | Organization | | | | + +---------+ + + | [facility] | | | | + +---------+ + + documented in this encounter Visit Diagnoses Not on filedocumented in this encounter"
--- OUTSIDE RECORDS SUMMARY | ~2019-06-07 | XMS | Encounter Summary ---
Demographics + + + | Address | [address] [facility] [address] | | | [place] [address] | + + + | Home Phone | | + + + | Preferred Language | Unknown | + + + | Marital Status | Single | + + + | Pentecostalism Affiliation | 1041 | + + + | Race | Unknown | + + + | Ethnic Group | Unknown | + + + Author + + + | Author | [facility] | | | and [place] | + + + | Organization | [facility] | | | and [place] [...] Team Providers + +------+ + | Care Workday Consultant Name | Role | Phone | + +------+ + | Juan Underwood NP | PCP | | + +------+ + Encounter Details +--------+ + + + + | Date | Type | Department | Care Team | Description | +--------+ + + + + | 11/08/ | Abstract | [facility] | Yazan Martel | | | 2017 | | [address]ULMONARY [address] | [address] | | | | | [place], | [place] | | | | | [place] [address] | [place] [address] | | | | | [phone] | [phone] | | | | | | | | +--------+ + + + + Social History + + + +--------+ + | Tobacco Use | Types | Packs/Day | Years | Date | | | | | Used | | + + + +--------+ + | Former Smoker | Cigarettes | 0.25 | | 199905/17/2017 | + + + +--------+ + + +------+---+---+ | Smokeless Tobacco: | Chew | | | | Current User | | | | + +------+---+---+ + + | Comments: 10/29/17: "I'm vaping 3% Nicotine" [...] Visit Diagnoses Not on filedocumented in this encounter
--- OUTSIDE RECORDS SUMMARY | ~2019-06-07 | XMS | Encounter Summary ---
Demographics + + + | Address | [address] | | | [place] [address] | + + + | Home Phone | | + + + | Preferred Language | Unknown | + + + | Marital Status | Single | + + + | Advent Affiliation | CAT | + + + | Race | White | + + + | Ethnic Group | Not or | + + + Author + + + | Author | [facility] | + + + | Organization | [facility] | + + + | Address | Unknown | + + + | Phone | Unavailable | + + + Support + + + + + | Name | Relationship | Address | Phone | + + + + + | Malinda Perdomo | ECON | [address] | | | | | [place] | | | | | [address] | | + + + + + Care Team Providers + +------+ + | Care Bilingual Receptionist Name | Role | Phone | + +------+ + PCP | Unavailable | + +------+ + Encounter Details +--------+ + + + + | Date | Type | Department | Care Team | Description | +--------+ + + + + | 11/28/ | Office | General Internal | Note, Outpatient | Progress Note | | 1995 | Visit-Trans | Medicine [address] | Clinic | | | | jose | [address] | | | | | | Mailcode: [id number] | | | | | | Outpatient Clinic | | | | | | [address] | | | | | | [place], [place] | | | | | | [address] | | | | | | [phone] | | | +--------+ + + + [...] + + documented as of this encounter Progress Notes Interface, Coffee Break Attendant In - 10/23/2006 1:12 AM PDT CLINIC DATE: 11/29/95 NEUROSURGERY CLINIC SUBJECTIVE: Lincoln suffered a depressed skull fracture associated with a scalp abrasion in mid-October when he was kicked in the head by a horse. He had a rather protracted admission to [facility] for observation, but when he began eating, he was discharged. Since returning home, Lincoln has had occasional headaches. His headaches seem to be subsiding. Likewise, Lincoln has been somnambulating. Fortunately, the house does not have any stairs. The frequency of somnambulation seems to be subsiding as well. Lincoln has had PE tubes in the past. He has a local core manager, whom he has an appointment to see later this month. EXAMINATION: Lincoln is cheerful and very busy examining the examining room. There is a ridge at the site of the skull fracture. The abrasion has healed without any sign of infection. The left optic nerve head is normal. I was unable to examine the right. Ocular movements are normal. The pupillary reactivity is normal. IMPRESSION: Skull fracture. Lincoln is still exhibiting some behavioral sequelae, but he is improving. PLAN: There are no neurosurgical recommendations. No return appointment was given. I encouraged mother to follow up with the core manager in [place]. Troy Summers Jr., M.D. Trim Crew Supervisor, Neurosurgery DEVANTE:abi cc: TROY CROWLEY MD [address] [place] [address] ELVIN ENGEL MD [facility] [address] [facility] [address] [facility] [address] RICK ABDALLA MD [address] [place] [address] [address] [place] [address] documented in this encounter Plan of Treatment Not on filedocumented as of this encounter Visit Diagnoses Not on filedocumented in this encounter"
--- OUTSIDE RECORDS SUMMARY | ~2019-06-07 | XMS | Encounter Summary ---
Demographics + + + | Address | [address] [facility] [address] | | | [place] [address] | + + + | Home Phone | | + + + | Preferred Language | Unknown | + + + | Marital Status | Single | + + + | Synagogue Affiliation | 1041 | + + + | Race | Unknown | + + + | Ethnic Group | Unknown | + + + Author + + + | Author | [facility] | | | and [place] | + + + | Organization | [facility] | | | and [place] | + + + | Address | Unknown | + + + | Phone | Unavailable | + + + Support + + +---------+ + | Name | Relationship | Address | Phone | + + +---------+ + | Yumiko Perdomo | ECON | Unknown | | + + +---------+ + Care Team Providers + +------+ + | Care Regulator Pin Inserter Name | Role | Phone | + +------+ + | Juan Underwood NP | PCP | | + +------+ + Reason for Visit + + + | Reason | Comments | + + + | Pulmonary Disease | 1 1/2 mo follow up | | Appointment | | + + + Encounter Details +--------+---------+ + + + | Date | Type | Department | Care Team | Description | +--------+---------+ + + + | 12/16/ | Office | [facility] | Yazan Martel | Moderate persistent | | 2018 | Visit | PULMONARY [address] | [address] | asthma not dependent | | | | [place], | [place] | on systemic | | | | [place] [address] | [place] [address] | steroids (Primary | | | | [phone] | [phone] | Dx) | | | | | | | +--------+---------+ + + + Social History [...] + + + | Blood Pressure | 130/98 | 12/16/2017 2:38 PM | | | | | PDT | | + + + + + | Pulse | 74 | 12/16/2017 2:38 PM | | | | | PDT | | + + + + + | Temperature | 36.7 C (98.1 F) | 12/16/2017 2:38 PM | | | | | PDT | | + + + + + | Respiratory Rate | - | - | | + + + + + | Oxygen Saturation | 97% | 12/16/2017 2:38 PM | | | | | PDT | | + + + + + | Inhaled Oxygen | - | - | | | Concentration | | | | + + + + + | Weight | 86.7 kg (191 lb 2.2 | 12/16/2017 2:38 PM | | | | oz) | PDT | | + + + + + | Height | 170.2 cm (5' 7") | 12/16/2017 2:38 PM | | | | | PDT | | + + + + + | Body Mass Index | 29.94 | 12/16/2017 2:38 PM | | | | | PDT | | + + + + + documented in this encounter Progress Notes Yazan Martel MD - 12/16/2017 2:40 PM [id number] with moderate persistent asthma improving on moderate dose inhaled HFA steroid through spacer I first saw him October 29, 2017 and he said he was going through to albuterol inhalers a celina h, the last month he is only needed one. He is using 2 puffs Flovent 220 HFA through spacer in his technique was pretty good, although not perfect. I showed him a couple of things. He is also been under stress because he has a new daughter who was born weighing 5 pounds b ut she is doing well and up to 8 pounds. However she keeps him up at night so he doesn't ge t a lot of sleep. 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 Other then for his daughter he is sleeping through the night and is not bringing up much sp utum and he is not had an exacerbation. Physical exam: Anxious attentive articulate young man in no distress. Weight 86.7 kg, bloo d pressure 130/98, pulse 74, temperature 98.1, oxygen saturation 97%, respirations 14. HEEN T shows reactive pupils, pink conjunctiva, normal oropharynx. The neck is normal. The lung miranda show prolonged expiratory phase but no wheezing. Cardiac rhythm is regular with no murmur or gallop. Abdomen is benign. Extremities show no edema. Laboratory evaluation: There is no new lab today. Impression and plan: 1. Moderate persistent asthma: I feel certain we can keep him off prednisone. I told him if he worsens at all to escalate to 4 separate puffs 3 times daily until he has been fine fo r a week, then he can reduce to 4 puffs twice daily for a week, before reducing to 3 puffs t wice daily for a week. He is to return in about 3-4 months. Hopefully he will not have an exacerbation during that time. She can come sooner when necessary. We spent 15 minutes, at least half in counseling. Wor d processing was used and I apologize for mistakes. Yazan Martel M.D. Pulmonary critical care documented i n this encounter Plan of Treatment Not on filedocumented as of this encounter Visit Diagnoses + + | Diagnosis | + + | Moderate persistent asthma not dependent on systemic steroids - Primary | + + documented in this encounter
--- OUTSIDE RECORDS SUMMARY | ~2019-06-07 | XMS | Encounter Summary ---
Demographics + + + | Address | [address] [facility] [address] | | | [place] [address] | + + + | Home Phone | | + + + | Preferred Language | Unknown | + + + | Marital Status | Single | + + + | Catholic Affiliation | 1041 | + + + | Race | Unknown | + + + | Ethnic Group | Unknown | + + + Author + + + | Author | [facility] | | | and [place] | + + + | Organization | [facility] | | | and [place] [...] Team Providers + +------+ + | Care Production Worker Name | Role | Phone | + +------+ + | Juan Underwood NP | PCP | | + +------+ + Encounter Details +--------+ + + + + | Date | Type | Department | Care Team | Description | +--------+ + + + + | 03/22/ | Abstract | [facility] | Yazan Martel | | | 2016 | | PULMONARY [address] | [address] | | | | | [place], | [place] | | | | | [place] [address] | [place] [address] | | | | | [phone] | [phone] | | | | | | | | +--------+ + + + + Social History + +-------+ +--------+------+ | Tobacco Use | Types | Packs/Day | Years | Date | | | | | Used | | + +-------+ +--------+------+ | Current Every Day | | 0.25 | | | | Smoker | | | | | + +-------+ +--------+------+ + +---+---+---+ | Smokeless Tobacco: | | | | | Never Used | | | | + +---+---+---+ + + +---------+ + | Alcohol Use [...]
--- OUTSIDE RECORDS SUMMARY | ~2019-06-07 | XMS | Clinical Summary ---
Demographics + + + | Address | [address] | | | [place] [address] | + + + | Home Phone | | + + + | Preferred Language | Unknown | + + + | Marital Status | Single | + + + | Anabaptist Affiliation | CAT | + + + [...] | Malinda Perdomo | ECON | [address] | | | | | [place] | | | | | [address] | | + + + + + Care Team Providers + +------+ + | Care Operator Helper Name | Role | Phone | + +------+ + PCP | Unavailable | + +------+ + Source Comments CINTHIA is fully live on both [facility] and [facility] InPatient.[facility] Allergies No Known Allergies Medications Not on file Active Problems Not [...] recent travel history available. | + + Last Filed Vital Signs Not on file Plan of Treatment + + + + + | Health Maintenance | Due Date | Last Done | Comments | + + + + + | Influenza (Flu) | | | | | vaccination (#1) | 9 | | | + + + + + | Pneumococcal | Aged Out | | No longer eligible | | vaccination | | | based on patient's | | | | | age to complete this | | | | | topic | + + + + + Results Not on filefrom Last 3 Months"
--- OUTSIDE RECORDS SUMMARY | ~2019-06-07 | XMS | Encounter Summary ---
Demographics + + + | Address | [address] | | | [place] [address] | + + + | Home Phone | | + + + | Preferred Language | Unknown | + + + | Marital Status | Single | + + + | Gnosticism Affiliation | CAT | + + + [...] [place] | | | | | [address] | | + + + + + Care Team Providers + +------+ + | Care Pasteurizing Machine Operator Name | Role | Phone | + +------+ + PCP | Unavailable | + +------+ + Encounter Details +--------+ + + + + | Date | Type | Department | Care Team | Description | +--------+ + + + + | 09/07/ | Transcribed | | Dictation, Other | Transcribed | | 2000 | | | | | +--------+ + [...] as of this encounter Progress Notes Interface, Ibm Bpm Developer In - 06/22/2006 3:03 AM [facility] [[email or web address]] [place] [address] [place], [place] [address] or Division of Pediatric Neurology [address] [facility], [address] [address] , September 07, 1999 Lemuel Carson M.D. [address] [place] [address] RE: LINCOLN PERDOMO MR #: [id number] Dear Dr. Carson: Lincoln Perdomo was seen for a neurologic consultation in the Pediatric Neurology Clinic at [facility] on August 25, 1999. As you know, Lincoln is a 6-1/2-year-old boy who was referred for evaluation of persistent headaches. His headaches seem to have begun approximately four years ago when he was hit in the head by a horse hoof. This resulted in a skull fracture to the right parietal region. His headaches have been slowly escalating over the past four years. They now are occurring on a weekly basis and frequently associated with vomiting for hours. When he falls asleep, there is some resolution of his headache. There is sensitivity to sound and light with his headaches. His mother will treat his headaches with Aleve with some improvement, but it has been difficult getting him to take the medication due to the vomiting. FAMILY HISTORY: Migraine in the father who also may have had a posttraumatic event as well as migraine in a maternal grandmother. PAST MEDICAL HISTORY: Notable for some allergic rhinitis as well as chronic otitis. He has been noted to have poor attention span and had to repeat kindergarten, and a diagnosis of an attention deficit is being entertained. On neurologic examination, there are no significant focal or lateralizing features. He does have some difficulty isolating fine motor movements which can often times be seen in children with attentional deficit disorders and learning disabilities. There is also some mild dystonic posturing of his outstretched hands. IMPRESSION: Lincoln Perdomo is a 6-1/2-year-old boy with a four-year history of escalating headaches. His headaches now are associated with significant vomiting, photophobia, and sensitivity to light. They resolve when he goes to sleep. His neurologic examination is normal with the exception of some mild signs which may be seen in children with learning disabilities and attentional deficit disorders. At this time, I believe this young man does indeed have migraine, which very well may have been precipitated by the head trauma four years ago. However, there is also a genetic predisposition on the father's side of the family. In terms of his medical management, due to him having weekly headaches which seem to be disrupting his ability to function fully, I believe he is a candidate for prophylaxis. Since there is a history of some allergic disease, I would tend to begin with a tricyclic rather than a beta amaris. I have therefore taken the liberty of placing Lincoln on Elavil 10 mg p.o. q.h.s. I have asked the family to call us in approximately two weeks to report whether or not there has been any improvement in his headaches. This is a small dose, and we can easily increase him to several factors higher. In addition for his severe headaches, we have given him a prescription for Imitrex, the 5 mg nasal spray. While the Aleve is an excellent option, unfortunately due to the significant vomiting, oral medication will not be the most effective way of trying to abort his headaches. Hopefully the Imitrex administered nasally will be effective in alleviating his acute exacerbations. In terms of his educational assessment and attention deficit hyperactivity disorder, we would like to refer him to the [facility], which is an advocacy program for the schools. If the family is not able to get the resources that they need to help with his educational assessment and placement, then further evaluation through the [facility] might be appropriate. Thank you for allowing me to participate in the care of this young man. If I may be of any further assistance, please do not hesitate to contact me. Sincerely, Russell Miller M.D. Professor of Pediatric Neurology Director of Pediatric Neurology TK / [place] [id number] / [id number] / [id number] / [id number] signed by Interface, Ibm Bpm Developer In at 06/22/2006 3:03 AM PSTdocume nted in this encounter Plan of Treatment Not on filedocumented as of this encounter Visit Diagnoses Not on filedocumented in this encounter"
--- OUTSIDE RECORDS SUMMARY | ~2019-06-07 | XMS | Encounter Summary ---
Demographics + + + | Address | [address] [facility] [address] | | | [place] [address] | + + + | Home Phone | | + + + | Preferred Language | Unknown | + + + | Marital Status | Single | + + + | Baptism Affiliation | 1041 | + + + | Race | Unknown | + + + | Ethnic Group | Unknown | + + + Author + + + | Author | [facility] | | | and [place] | + + + | Organization | [facility] | | | and [place] | [...] Team Providers + +------+ + | Care Envelope Addresser Name | Role | Phone | + [...] [address] | | | | | [phone] | [place] [address] | | +--------+ + + + + [...]
--- OUTSIDE RECORDS SUMMARY | ~2019-06-07 | XMS | Encounter Summary ---
Demographics + + + | Address | [address] | | | [place] [address] | + + + | Home Phone | | + + + | Preferred Language | Unknown | + + + | Marital Status | Single | + + + | Baptism Affiliation | CAT | + + + [...] [place] | | | | | [address] | | + + + + + Care Team Providers + +------+ + | Care Ship Construction Teacher Name | Role | Phone | + +------+ + PCP | Unavailable | + +------+ + Encounter Details +--------+ + + + + | Date | Type | Department | Care Team | Description | +--------+ + + + + | 11/06/ | Results | | Other, Faculty | | | 1996 | Only | | [phone] | | +--------+ + + + + [...] | + +--------+ + + + | CT HEAD WO CONTRAST | Urgent | 11/07/1995 | | Results for this | | | | 5:16 AM | | procedure are in the | | | | PDT | | results section. | + +--------+ + + + documented in this encounter Results CT HEAD WO CONTRAST (11/07/1995 5:16 AM PDT) + + + + + + | Component | Value | Ref Range | Performed | Pathologist | | | | | At | Signature | + + + + + + | CT HEAD WO | Radiologist 1: JANET, | | | | | CONTRAST | JESUS Nguyen, | | | | | | M.DErik-Radiologist 2: | | | | | | JESUS GONZALES, | | | | | | M.DLINCOLN BROWN | | | | | | | | | | | | | | | | | | [birth year]26 | | | | | | CRANIAL CT DONE ON | | | | | | 11/07/95 AT | | | | | | 05:16DICTATED ON | | | | | | 11/09/95 TECHNIQUE: | | | | | | Contiguous 5 | | | | | | millimeter axial images | | | | | | were obtained throughthe | | | | | | posterior fossa with | | | | | | the remainder of the | | | | | | cranium evaluated with10 | | | | | | millimeter imaging. | | | | | | FINDINGS: There is a | | | | | | questionable area of | | | | | | decreased | | | | | | attenuationinvolving the | | | | | | right temporal lobe. | | | | | | This may represent a | | | | | | small area ofcontusion. | | | | | | No evidence of | | | | | | hemorrhage is present. | | | | | | This portion of | | | | | | thebrain directly | | | | | | underlies an area of | | | | | | skull fracture involving | | | | | | the rightparietal bone. | | | | | | There is elevation of | | | | | | the fragment of | | | | | | approximately4-5 | | | | | | millimeters and slight | | | | | | overriding of the | | | | | | fragments at | | | | | | theposterior margin. | | | | | | The remainder of the | | | | | | brain and ventricles | | | | | | arewithout evidence of | | | | | | additional injury. | | | | | | IMPRESSION: Possible | | | | | | contusion of right | | | | | | temporal lobe underlying | | | | | | displaced | | | | | | skullfracture. END OF | | | | | | IMPRESSION: | | | | + + + + + + + + | Specimen | + + | | + + + + + | Narrative | Performed At | + + + | Ordered by VISHNU POWELL | | + + + + +---------+ + + | Performing | Address | City/State/Zipcode | Phone Number | | Organization | | | | + +---------+ + + | [facility] | | | | | RADIOLOGY | | | | + +---------+ + + documented in this encounter Visit Diagnoses Not on filedocumented in this encounter"
--- OUTSIDE RECORDS SUMMARY | ~2019-06-07 | XMS | Encounter Summary ---
Demographics + + + | Address | [address] | | | [place] [address] | + + + | Home Phone [...] Author + + + | Author | [facility] | + + + | Organization | [facility] | + + + | Address | Unknown | + + + | Phone | Unavailable | + + + Support + + + + + | Name | Relationship | Address | Phone | + + + + + | Malinda Perdomo | ECON | [address] | | | | | [place] | | | | | [address] | | + + + + + Care Team Providers + +------+ + | Care Cloud Systems Architect Name | Role | Phone | + [...] [id number] | | | | | | [place], [place] | | | | | | [address] | | | | | | [phone] | | | +--------+ + + + [...] | + + + + + | [facility] | [address] | [place] [address] | | | PATHOLOGY | [address] [...] | + + + + + | [facility] | [address] | [place] [address] | | | PATHOLOGY | [address] [...] | + + + + + | [facility] | [address] | [place], [place] [address] | | | PATHOLOGY | [address] [...] | + + + + + | [facility] | [address] | [place] [address] | | | PATHOLOGY | [address] | | | + + + + + documented in this encounter Visit Diagnoses Not on filedocumented in this encounter"
--- OUTSIDE RECORDS SUMMARY | ~2019-06-07 | XMS | Encounter Summary ---
Demographics + + + | Address | [address] | | | [place] [address] | + + + | Home Phone | | + + + | Preferred Language | Unknown | + + + | Marital Status | Single | + + + | Sikhism Affiliation | CAT | + + + | Race | White | + + + | Ethnic Group | Not or | + + + Author + + + | Author | [facility] | + + + | Organization | [facility] | + + + | Address | Unknown | + + + | Phone | Unavailable | + + + Support + + + + + | Name | Relationship | Address | Phone | + + + + + | Malinda Perdomo | ECON | [address] | | | | | [place] | | | | | [address] | | + + + + + Care Team Providers + +------+ + | Care Java Tech Name | Role | Phone | + +------+ + PCP | Unavailable | + +------+ + Encounter Details +--------+ + + + + | Date | Type | Department | Care Team | Description | +--------+ + + + + | 11/28/ | Office | General Internal | Note, Outpatient | Progress Note | | 1995 | Visit-Trans | Medicine [address] | Clinic | | | | jose | [address] | | | | | | Mailcode: [id number] | | | | | | Outpatient Clinic | | | | | | [address] | | | | | | [place], [place] | | | | | | [address] | | | | | | [phone] | | | +--------+ + + + [...] as of this encounter Progress Notes Interface, Stull Installer In - 10/23/2006 1:12 AM PDT CLINIC DATE: 11/29/95 NEUROSURGERY CLINIC SUBJECTIVE: Lincoln suffered a depressed skull fracture associated with a scalp abrasion in mid-October when he was kicked in the head by a horse. He had a rather protracted admission to [facility] for observation, but when he began eating, he was discharged. Since returning home, Lincoln has had occasional headaches. His headaches seem to be subsiding. Likewise, Lincoln has been somnambulating. Fortunately, the house does not have any stairs. The frequency of somnambulation seems to be subsiding as well. Lincoln has had PE tubes in the past. He has a local photo finisher, whom he has an appointment to see [...] encouraged mother to follow up with the photo finisher in [place]. Troy Summers Jr., M.D. Patient Scheduling Manager, Neurosurgery DEVANTE:abi cc: TROY CROWLEY MD [address] [place] [address] ELVIN ENGEL MD [facility] [address] [facility] [address] [facility] [address] RICK ABDALLA MD [address] [place] [address] [address] [place] [address] documented in this encounter Plan of Treatment Not on filedocumented as of this encounter Visit Diagnoses Not on filedocumented in this encounter"
--- OUTSIDE RECORDS SUMMARY | ~2019-06-07 | XMS | Clinical Summary ---
Demographics + + + | Address | [address] [facility] | | | [place] [address] | + + + | Home Phone | | + + + | Preferred Language | Unknown | + + + | Marital Status | Single | + + + | Jehovah'S Witness Affiliation | 1041 | + + + | Race | Unknown | + + + | Ethnic Group | Unknown | + + + Author + + + | Author | [facility] | | | and [place] | + + + | Organization | [facility] | | | and [...] Team Providers + +------+ + | Care Game Farm Helper Name | Role | Phone | + +------+ + | Juan Underwood PLASTICS DESIGN ENGINEER | PCP | | + +------+ + Allergies No Known Allergies Medications + + + +---------+------+------+-------+ | Medication | Sig | Dispensed | Refills | Star | End | Statu | | | | | | t | Date | s | | | | | | Date | | | + + + +---------+------+------+-------+ | PROAIR HFA 108 (90 | Inhale 2 puffs into | | 0 | | | Activ | | Base) MCG/ACT | the lungs every 4 | | | | | e | | inhaler | hours as needed for | | | | | | | | Wheezing or | | | | | | | | Shortness of Breath. | | | | | | + + + +---------+------+------+-------+ | albuterol 2.5 mg/3 | Take 2.5 mg by | | 0 | | | Activ | | mL nebulizer | nebulization every 4 | | | | | e | | solution | hours as needed for | | | | | | | | Wheezing, Shortness | | | | | | | | of Breath or | | | | | | | | Increased Work of | | | | | | | | Breathing. | | | | | | + + + +---------+------+------+-------+ | fluticasone | Inhale 4 puffs into | | 0 | | | Activ | | (FLOVENT HFA) 220 | the lungs 2 times | | | | | e | | mcg/puff inhaler | daily. | | | | | | + + + +---------+------+------+-------+ | busPIRone (BUSPAR) | Take 1 tablet by | | 0 | | | Activ | | 10 MG tablet | mouth Daily. | | | | | e | + + + +---------+------+------+-------+ | citalopram | Take 1 tablet by | | 0 | | | Activ | | (CELEXA) 40 mg | mouth Daily. | | | | | e | | tablet | | | | | | | + + + +---------+------+------+-------+ | gabapentin | Take 300 mg by mouth | | 0 | | | Activ | | (NEURONTIN) 300 mg | Daily as needed. | | | | | e | | capsule | | | | | | | + + + +---------+------+------+-------+ | ketorolac | Take 1 tablet by | | 0 | | | Activ | | (TORADOL) 10 MG | mouth as needed. | | | | | e | | tablet | | | | | | | + + + +---------+------+------+-------+ | naproxen | Take 1 tablet by | | 0 | | | Activ | | (NAPROSYN) 500 mg | mouth 2 times daily. | | | | | e | | tablet | | | | | | | + + + +---------+------+------+-------+ | omeprazole | Take 1 tablet by | | 0 | | | Activ | | (PRILOSEC) 10 mg | mouth 3 times daily | | | | | e | | capsule | as needed. | | | | | | + + + +---------+------+------+-------+ | prazosin | Take 1 capsule by | | 0 | | | Activ | | (MINIPRESS) 1 mg | mouth nightly. | | | | | e | | capsule | | | | | | | + + + +---------+------+------+-------+ Active Problems Not on file Immunizations + + + + | Name | Administration Dates | Next Due | + + + + | INFLUENZA PF | 10/29/2017 | | | QUAD(PED/ADOL/ADULT) | | | | ,PSKT or VIAL | | | + + + + Family History + + +------+ + | Medical History | Relation | Name | Comments | + + +------+ + | Hypertension | Father | | | + + +------+ + | Glaucoma | Mother | | | + + +------+ + + +------+--------+ + | Relation | Name | Status | Comments | + +------+--------+ + | Father | | Alive | | + +------+--------+ + | Mother | | Alive | | + +------+--------+ + Social History + + + +--------+ [...] | + + Last Filed Vital Signs + + + [...] | | + + + + + Plan of Treatment + + + + + | Health Maintenance | Due Date | Last Done | Comments | + + + + + | Vaccine: | | | | | Dtap/Tdap/Td (1 - | 2 | | | | Tdap) | | | | + + + + + | Vaccine: Influenza | | 10/29/2017 | | | (#1) | 9 | | | + + + + + Results Not on filefrom Last 3 Months Insurance + +--------+ +--------+ +---------+--------+ | Payer | Benefi | Subscriber | Effect | Phone | Address | Type | | | t Plan | ID | nicolasa | | | | | | / | | Dates | | | | | | Group | | | | | | + +--------+ +--------+ +---------+--------+ | GEHA | GEHA | [id number] | 01/30/20 | [phone] | | PPO | | | AETNA | | 17-Pre | 6 | | | | | PPO | | sent | | | | + +--------+ +--------+ +---------+--------+ | [place] | MEDICA | [id number] | | [phone] | | Medica | | | [place] | | 017-Pr | 2 | | id | | | PLUS | | esent | | | | + +--------+ +--------+ +---------+--------+ + +--------+ +--------+ + + | Guarantor Name | Accoun | Relation to | Date | Phone | Billing Address | | | t Type | Patient | of | | | | | | | | | | + +--------+ +--------+ + + | Lincoln Perdomo | Person | Self [birth year] | [address] | | | al/Fam | | 1991 | [phone] | [address] [place] | | | [place] | | | [address] (Home) | [phone] | + +--------+ +--------+ + + Advance Directives + + + + + | Type | Date Recorded | Patient | Explanation | | | | Inventory Controller | | + + + + + | Power of | | | | | Biologist | | | | + + + + + | Advance | | | | | Directive | | | | + + + + +
--- OUTSIDE RECORDS SUMMARY | ~2019-06-07 | XMS | Encounter Summary ---
Demographics + + + | Address | [address] [facility] [address] | | | [place] [address] | + + + | Home Phone | | + + + | Preferred Language | Unknown | + + + | Marital Status | Single | + + + | Temple Affiliation | 1041 | + + + | Race | Unknown | + + + | Ethnic Group | Unknown | + + + Author + + + | Author | [facility] | | | and [place] | + + + | Organization | [facility] | | | and [place] | [...] Team Providers + +------+ + | Care Movie Theater Usher Name | Role | Phone | + [...] | | | | | asthma, | PASSENGER INTERLINE CLERK [address] | MD Josh | | | | | uncomplicate | [address] | [address] | | | | | d | [address], | [place] | | | | | Procedures | [address] | [place], [place] | | | | | NEW PT | [place], | [address] Phone: | | | | | CONSULT | [place] [address] | [phone] | | | | | | Phone: | Fax: | | | | | | [phone] | [phone] | | | | | | Fax: | | | | | | | [phone] | | +--------+--------+ + + + + [...] | (Primary Dx); | | | | [place], | [place] | Moderate persistent | | | | [place] [address] | [place] [address] | asthma with acute | | | | [phone] | [phone] | exacerbation; Other | | | | [...]
--- OUTSIDE RECORDS SUMMARY | ~2019-06-07 | XMS | Encounter Summary ---
Demographics + + + | Address | [address] [facility] | | | [place] [address] | + + + | Home Phone | | + + + | Preferred Language | Unknown | + + + | Marital Status | Single | + + + | Holiness Affiliation | 1041 | + + + | Race | Unknown | + + + | Ethnic Group | Unknown | + + + Author + + + | Author | [facility] | | | and [place] | + + + | Organization | [facility] | | | and [place] [...] Team Providers + +------+ + | Care House Detective Name | Role | Phone | + +------+ + PCP | Unavailable | + +------+ + Encounter Details +--------+ + + + + | Date | Type | Department | Care Team | Description | +--------+ + + + + | 11/05/ | Hospital | [facility] | | | | 1995 | Encounter | MED CTR EMERGENCY | | | | | | CENTER [address] | | | | | | [place] | | | | | | [address] | | | | | | [phone] | | | +--------+ + + + [...]
--- OUTSIDE RECORDS SUMMARY | ~2019-06-07 | XMS | Encounter Summary ---
Demographics + + + | Address | [address] [facility] | | | [place] [address] | + + + | Home Phone | | + + + | Preferred Language | Unknown | + + + | Marital Status | Single | + + + | Pentecostal Affiliation | 1041 | + + + | Race | Unknown | + + + | Ethnic Group | Unknown | + + + Author + + + | Author | [facility] | | | and [place] | + + + | Organization | [facility] | | | and [place] [...] Team Providers + +------+ + | Care Director Of Labor Relations Name | Role | Phone | + +------+ + | Juan Underwood NP | PCP | | + +------+ + Encounter Details +--------+ + + + + | Date | Type | Department | Care Team | Description | +--------+ + + + + | 01/29/ | Imaging | [facility] | Provider, | | | 2017 | Exam | MED CTR EXTERNAL | MD [address] | | | | | IMAGING | [address] | | | | | [phone] | [place] [address] | | +--------+ + + + + [...] + +--------+ + + + | XR THORACIC SPINE 3 | Routin | 01/18/2017 | | Results for this | | VW | e | 12:00 PM | | procedure are in the | | | | PDT | | results section. | + +--------+ + + + documented in this encounter Results XR Thoracic Spine 3 Vw (01/18/2017 12:00 PM PDT) + + | Specimen | [...]
--- OUTSIDE RECORDS SUMMARY | ~2019-06-07 | XMS | Encounter Summary ---
Demographics + + + | Address | [address] [facility] | | | [place] [address] | + + + | Home Phone | | + + + | Preferred Language | Unknown | + + + | Marital Status | Single | + + + | Bahai Affiliation | 1041 | + + + | Race | Unknown | + + + | Ethnic Group | Unknown | + + + Author + + + | Author | [facility] | | | and [place] | + + + | Organization | [facility] | | | and [place] [...] Providers + +------+ + | Care Production Control Analyst Name | Role | Phone | + +------+ + | Juan Underwood NP | PCP | | + +------+ + Reason for Visit + + + | Reason | Comments | + + + | Appointment | | + + + Encounter Details +--------+ + + + + | Date | Type | Department | Care Team | Description | +--------+ + + + + | 10/12/ | Telephone | [facility] | Yazan Martel | Appointment | | 2017 | | PULMONARY [address] | MD [address] | | | | | [place], | [place] | | | | | [place] [address] | [place] [address] | | | | | [phone] | [phone] | | | | | | | [...]
--- OUTSIDE RECORDS SUMMARY | ~2019-06-07 | XMS | Encounter Summary ---
Demographics + + + | Address | [address] [facility] | | | [place] [address] | + + + | Home Phone | | + + + | Preferred Language | Unknown | + + + | Marital Status | Single | + + + | Adventist Affiliation | 1041 | + + + | Race | Unknown | + + + | Ethnic Group | Unknown | + + + Author + + + | Author | [facility] | | | and [place] | + + + | Organization | [facility] | | | and [...] Team Providers + +------+ + | Care Parish Visitor Name | Role | Phone | + +------+ + | Juan Underwood NP | PCP | | + +------+ + Encounter Details +--------+ + + + + | Date | Type | Department | Care Team | Description | +--------+ + + + + | 01/29/ | Imaging | [facility] | Provider, | | | 2017 | Exam | MED CTR EXTERNAL | [address] | | | | | IMAGING | [address] | | | | | [phone] | [place] [address] | | +--------+ + + + + [...] +--------+ + + + | XR CHEST AP PORTABLE | Routin | 07/29/2009 | | Results for this | | | e | 2:50 PM | | procedure are in the | | | | PST | | results section. | + +--------+ + + + documented in this encounter Results XR Chest AP Portable (07/29/2009 2:50 PM PST) + + | Specimen | + + | | + + + + + | Narrative | Performed At | + + + | External films for comparison only - no result from [facility]. | [facility] | + + + + +---------+ + + | Performing | Address | City/State/Zipcode | Phone Number | | Organization | | | | + +---------+ + + | [facility] | | | | + +---------+ + + documented in this encounter Visit Diagnoses Not on filedocumented in this encounter"
--- OUTSIDE RECORDS SUMMARY | ~2019-06-07 | XMS | Encounter Summary ---
Demographics + + + | Address | [address] [facility] | | | [place] [address] | + + + | Home Phone | | + + + | Preferred Language | Unknown | + + + | Marital Status | Single | + + + | Islam Affiliation | 1041 | + + + | Race | Unknown | + + + | Ethnic Group | Unknown | + + + Author + + + | Author | [facility] | | | and [place] | + + + | Organization | [facility] | | | and [place] [...] Team Providers + +------+ + | Care Hr Shared Services Consultant Name | Role | Phone | [...] [address] | | | | | [phone] | [place] [address] | | +--------+ + + + + [...] XR CHEST 2 VIEWS | Routin | 10/11/2015 | | Results for this | | | e | 8:50 AM | | procedure are in the | | | | PDT | | results section. | + +--------+ + + + documented in this encounter Results XR Chest 2 VW (10/11/2015 8:50 AM PDT) + + | Specimen | + [...]
--- OUTSIDE RECORDS SUMMARY | ~2019-06-07 | XMS | Encounter Summary ---
Demographics + + + | Address | [address] [facility] | | | [place] [address] | + + + | Home Phone | | + + + | Preferred Language | Unknown | + + + | Marital Status | Single | + + + | Jain Affiliation | 1041 | + + + | Race | Unknown | + + + | Ethnic Group | Unknown | + + + Author + + + | Author | [facility] | | | and [place] | + + + | Organization | [facility] | | [...] Team Providers + +------+ + | Care Child Care Group Leader Name | Role | Phone | + +------+ + | Juan Underwood NP | PCP | | + +------+ + Encounter Details +--------+ + + + + | Date | Type | Department | Care Team | Description | +--------+ + + + + | 10/01/ | Abstract | [facility] | Yazan Martel | | | 2017 | | PULMONARY [address] | MD [address] | | | | | [place], | [place] | | | | | [place] [address] | [place] [address] | | | | | [phone] | [phone] | | | | | | | [...]
--- OUTSIDE RECORDS SUMMARY | ~2019-06-07 | XMS | Encounter Summary ---
Demographics + + + | Address | [address] [facility] | | | [place] [address] | + + + | Home Phone | | + + + | Preferred Language | Unknown | + + + | Marital Status | Single | + + + | Scientologist Affiliation | 1041 | + + + | Race | Unknown | + + + | Ethnic Group | Unknown | + + + Author + + + | Author | [facility] | | | and [place] | + + + | Organization | [facility] | | | and [place] [...] Team Providers + +------+ + | Care Lap Layer Name | Role | Phone | + [...] [address] | | | | | [place], | [place] | | | | | [place] [address] | [place] [address] | | | | | [phone] | [phone] | | | | | | | [...]
--- OUTSIDE RECORDS SUMMARY | ~2019-06-07 | XMS | Encounter Summary ---
Demographics + + + | Address | [address] | | | [place] [address] | + + + | Home Phone | | + + + | Preferred Language | Unknown | + + + | Marital Status | Single | + + + | Congregation Affiliation | CAT | + + + [...] [place] | | | | | [address] | | + + + + + Care Team Providers + +------+ + | Care Aviation Ordnance Officer Name | Role | Phone | + +------+ + PCP | Unavailable | + +------+ + Encounter Details +--------+ + + + + | Date | Type | Department | Care Team | Description | +--------+ + + + + | 11/09/ | Transcribed | Allergy Clinic at | Dictation, Other | Transcribed | | 1995 | | [facility] [address] | | | | | | [address] | | | | | | Mailcode: [address] | | | | | | [place] | | | | | | [place], | | | | | | [place] [address] | | | | | | [phone] | | | +--------+ + + + [...] as of this encounter Progress Notes Interface, Press Cutter In - 10/01/2006 7:24 AM PST [address] [address] or November 10, 1995 TROY CROWLEY MD [address] [place] [address] RE:Lincoln Perdomo MR#:[id number] Dear Doctor Crowley: Your patient, Lincoln Perdomo, was discharged from [facility] today after a prolonged recuperation from his head injury. You will recall that he was kicked by a horse over the weekend. He suffered a superficial abrasion of the scalp associated with an underlying skull fracture. There was no intracranial lesion. Under observation in the hospital, he experienced protracted nausea and vomiting. When he was finally taking food by mouth, he was discharged today. Because of the distances involved, no follow-up arrangements were made down here in [place]. His family was instructed to contact you for follow-up in the next couple of weeks. Please do not hesitate to contact me if I can assist you in any other way in Lincoln's care. Very best regards, Troy Summers Jr., M.Sg., F.A.A.P. Manager Of Customer Billing, Neurosurgery and Pediatrics DEVANTE/wanda P cc: ELVIN ENGEL MD [facility] [address] [facility] [address] [place] [address] documented in this encounter Plan of Treatment Not on filedocumented as of this encounter Visit Diagnoses Not on filedocumented in this encounter"
--- OUTSIDE RECORDS SUMMARY | ~2019-06-07 | XMS | Encounter Summary ---
Demographics + + + | Address | [address] [facility] [address] | | | [place] [address] | + + + | Home Phone | | + + + | Preferred Language | Unknown | + + + | Marital Status | Single | + + + | Zoroastrianism Affiliation | CAT | + + + | Race | White | + + + | Ethnic Group | Not or | + + + Author + + + | Author | [facility] | + + + | Organization | [facility] | + + + | Address | Unknown | + + + | Phone | Unavailable | + + + Support + + + + + | Name | Relationship | Address | Phone | + + + + + | Malinda Perdomo | ECON | [address] | | | | | [place] | | | | | [address] | | + + + + + Care Team Providers + +------+ + | Care Supply Chain Systems Manager Name | Role | Phone | + +------+ + PCP | Unavailable | + +------+ + Encounter Details +--------+ + + + + | Date | Type | Department | Care Team | Description | +--------+ + + + + | 02/09/ | Document-Sc | UNKNOWN DEPARTMENT | Unknown . | | | 2018 | anned | [address] | | | | | | [address] | | | | | | [place], [place] | | | | | | [address] | | | +--------+ + + + [...]
--- OUTSIDE RECORDS SUMMARY | ~2019-06-07 | XMS | Encounter Summary ---
Demographics + + + | Address | [address] [facility] | | | [place] [address] | + + + | Home Phone | | + + + | Preferred Language | Unknown | + + + | Marital Status | Single | + + + | Anabaptist Affiliation | 1041 | + + + | Race | Unknown | + + + | Ethnic Group | Unknown | + + + Author + + + | Author | [facility] | | | and [place] | + + + | Organization | [facility] | | | and [place] [...] Team Providers + +------+ + | Care Rand Sewer Name | Role | Phone | + [...] [address] | | | | | [phone] | [place] [address] | | +--------+ + + + + [...]
--- OUTSIDE RECORDS SUMMARY | ~2019-06-07 | XMS | Encounter Summary ---
Demographics + + + | Address | [address] [facility] [address] | | | [place] [address] | + + + | Home Phone | | + + + | Preferred Language | Unknown | + + + | Marital Status | Single | + + + | Congregational Affiliation | CAT | + + + | Race | White | + + + | Ethnic Group | Not or | + + + Author + + + | Author | [facility] | + + + | Organization | [facility] | + + + | Address | Unknown | + + + | Phone | Unavailable | + + + Support + + + + + | Name | Relationship | Address | Phone | + + + + + | Malinda Perdomo | ECON | [address] | | | | | [place] | | | | | [address] | | + + + + + Care Team Providers + +------+ + | Care Core Laying Machine Operator Name | Role | Phone | + +------+ + PCP | Unavailable | + +------+ + Encounter Details +--------+ + + + + | Date | Type | Department | Care Team | Description | +--------+ + + + + | 11/06/ | ED Progress | Emergency Medicine | Report, Emergency | ED Progress Note | | 1995 | | [address] | Services | | | | Note-Transc | [address] | | | | | lien | [place], [place] | | | | | | [address] | | | +--------+ + + + [...]
--- OUTSIDE RECORDS SUMMARY | ~2019-06-07 | XMS | Encounter Summary ---
Demographics + + + | Address | [address] [facility] | | | [place] [address] | + + + | Home Phone | | + + + | Preferred Language | Unknown | + + + | Marital Status | Single | + + + | Samaritan Affiliation | 1041 | + + + | Race | Unknown | + + + | Ethnic Group | Unknown | + + + Author + + + | Author | [facility] | | | and [place] | + + + | Organization | [facility] | | | and [...] Providers + +------+ + | Care Manager Enterprise Content Management Name | Role | Phone | + +------+ + PCP | Unavailable | + +------+ + Encounter Details +--------+ + + + + | Date | Type | Department | Care Team | Description | +--------+ + + + + | 11/05/ | Hospital | [facility] | | | | 1995 | Encounter | MED CTR EMERGENCY | | | | | | CENTER [address] | | | | | | [place] | | | | | | [address] | | | | | | [phone] | | | +--------+ + + + [...]
--- OUTSIDE RECORDS SUMMARY | ~2019-06-07 | XMS | Encounter Summary ---
Demographics + + + | Address | [address] [facility] | | | [place] [address] | + + + | Home Phone | | + + + | Preferred Language | Unknown | + + + | Marital Status | Single | + + + | Evangelical Affiliation | 1041 | + + + | Race | Unknown | + + + | Ethnic Group | Unknown | + + + Author + + + | Author | [facility] | | | and Jaisonana | + + + | Organization | [facility] | | | and Jaisonana [...] Team Providers + +------+ + | Care Mds Nurse Name | Role | Phone | + [...] Sergey SINGH | | | | | [phone] | [place] [address] | | +--------+ + + + + [...]
--- OUTSIDE RECORDS SUMMARY | ~2019-06-07 | XMS | Encounter Summary ---
Demographics + + + | Address | [address] [facility] [address] [facility] | | | [place] [address] | + + + | Home Phone [...] Author + + + | Author | [facility] | + + + | Organization | [facility] | + + + | Address | Unknown | + + + | Phone | Unavailable | + + + Support + + + + + | Name | Relationship | Address | Phone | + + + + + | Malinda Perdomo | ECON | [address] | | | | | [place] | | | | | [address] | | + + + + + Care Team Providers + +------+ + | Care Director Of Special Education Name | Role | Phone | + [...] | | | | | lien | [place], [place] | | | | | | [address] | | | +--------+ + + + [...]
--- OUTSIDE RECORDS SUMMARY | ~2019-06-07 | XMS | Encounter Summary ---
Demographics + + + | Address | [address] [facility] | | | [place] [address] | + + + | Home Phone | | + + + | Preferred Language | Unknown | + + + | Marital Status | Single | + + + | Uatsdin Affiliation | 1041 | + + + | Race | Unknown | + + + | Ethnic Group | Unknown | + + + Author + + + | Author | [facility] | | | and Jaisonana | + + + | Organization | [facility] | | | and Jaisonana [...] Team Providers + +------+ + | Care Chronic Specialist Name | Role | Phone | [...] [address] | | | | | [place], | [place] | | | | | [place] [address] | [place] [address] | | | | | [phone] | [phone] | | | | | | | [...]
--- OUTSIDE RECORDS SUMMARY | ~2019-06-07 | XMS | Encounter Summary ---
Demographics + + + | Address | [address] [facility] | | | [place] [address] | + + + | Home Phone | | + + + | Preferred Language | Unknown | + + + | Marital Status | Single | + + + | Baptism Affiliation | 1041 | + + + | Race | Unknown | + + + | Ethnic Group | Unknown | + + + Author + + + | Author | [facility] | | | and Celinaana | + + + | Organization | [facility] | | | and Celinaana [...] Team Providers + +------+ + | Care Refrigerator Room Clerk Name | Role | Phone | [...] + + | 12/16/ | Office | [facility] | Yazan Martel | Moderate persistent | | 2018 | Visit | [address]ULMONARY [address] | MD [address] | asthma not dependent | | | | [place], | [place] | on systemic | | | | [place] [address] | [place] [address] | steroids (Primary | | | | [phone] | [phone] | Dx) | | | | | [...] Yazan Martel MD - 12/16/2017 2:40 PM [id number] with moderate persistent asthma improving on moderate [...] 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 Other then for his daughter he is [...]
--- OUTSIDE RECORDS SUMMARY | ~2019-06-07 | XMS | Encounter Summary ---
Demographics + + + | Address | [address] [facility] | | | [place] [address] | + + + | Home Phone | | + + + | Preferred Language | Unknown | + + + | Marital Status | Single | + + + | Mandaen Affiliation | 1041 | + + + | Race | Unknown | + + + | Ethnic Group | Unknown | + + + Author + + + | Author | [facility] | | | and Jaisonana | + + + | Organization | [facility] | | | and [...] Team Providers + +------+ + | Care Pickle Solution Maker Name | Role | Phone | [...] Sergey SINGH | | | | | [phone] | [place] [address] | | +--------+ + + + + [...] XR CHEST 2 VIEWS | Routin | 01/18/2017 | | Results for this | | | e | 4:45 PM | | procedure are in the | | | | PDT | | results section. | + +--------+ + + + documented in this encounter Results XR Chest 2 VW (01/18/2017 4:45 PM PDT) + + | Specimen [...]
--- OUTSIDE RECORDS SUMMARY | ~2019-06-07 | XMS | Encounter Summary ---
Demographics + + + | Address | [address] [facility] | | | [place] [address] | + + + | Home Phone | | + + + | Preferred Language | Unknown | + + + | Marital Status | Single | + + + | Buddhist Affiliation | 1041 | + + + | Race | Unknown | + + + | Ethnic Group | Unknown | + + + Author + + + | Author | [facility] | | | and Jaisonana | + + + | Organization | [facility] | | | and [...] Team Providers + +------+ + | Care Facilities Painter Name | Role | Phone | + [...] + + | 10/12/ | Telephone | [facility] | Yazan Martel | Appointment | | 2017 | | PULMONARY [address] | MD [address] | | | | | [place], | [place] | | | | | [place] [address] | [place] [address] | | | | | [phone] | [phone] | | | | | | | [...]
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
--- OUTSIDE RECORDS SUMMARY | ~2019-06-07 | XMS | Encounter Summary ---
Demographics + + + | Address | [address] | | | [place] [address] | + + + | Home Phone | | + + + | Preferred Language | Unknown | + + + | Marital Status | Single | + + + | Alevism Affiliation | CAT | + + + [...] [place] | | | | | [address] | | + + + + + Care Team Providers + +------+ + | Care Twenty One Dealer Name | Role | Phone | + [...] as of this encounter Progress Notes Interface, Mechanical Engineering Advisor In - 06/22/2006 3:03 AM [facility] [place] [address] [place], [place] [address] or Division of Pediatric Neurology [address] [facility], [address] [address] , September 07, 1999 Lemuel Carson M.D. [address] [place] [address] RE: LINCOLN PERDOMO MR #: [id number] Dear Dr. Carson: Lincoln Perdomo was seen for a neurologic consultation in the Pediatric Neurology Clinic at [facility] on August 25, 1999. As [...] would like to refer him to the [facility], which is an advocacy program for the [...] Director of Pediatric Neurology TK / HS [id number] / [id number] / [id number] / [id number] signed by Interface, Mechanical Engineering Advisor In at 06/22/2006 3:03 AM PSTdocume nted in this encounter Plan of Treatment Not on filedocumented as of this encounter Visit Diagnoses Not on filedocumented in this encounter"
--- OUTSIDE RECORDS SUMMARY | ~2019-06-07 | XMS | Encounter Summary ---
Demographics + + + | Address | [address] | | | [place] [address] | + + + | Home Phone [...] + + + | Author | [facility] | + + + | Organization | [facility] | + + + | Address | Unknown | + + + | Phone | Unavailable | + + + Support + + + + + | Name | Relationship | Address | Phone | + + + + + | Malinda Perdomo | ECON | [address] | | | | | [place] | | | | | [address] | | + + + + + Care Team Providers + +------+ + | Care Tarper Name | Role | Phone | + +------+ + PCP | Unavailable | + +------+ + Encounter Details +--------+ + + + + | Date | Type | Department | Care Team | Description | +--------+ + + + + | 11/09/ | Transcribed | Allergy Clinic at | Dictation, Other | Transcribed | | 1995 | | [facility] [address] | | | | | | [address] | | | | | | Mailcode: OP34 Aron | | | | | | [place] | | | | | | [place], | | | | | | [place] [address] | | | | | | [phone] | | | +--------+ + + + [...] as of this encounter Progress Notes Interface, Shank Sorter In - 10/01/2006 7:24 AM PST [address] [address] or November 10, 1995 TROY CROWLEY MD [address] [place] [address] RE:Lincoln Perdomo MR#:[id number] Dear Doctor Crowley: Your patient, Lincoln Perdomo, was discharged from [facility] today after a prolonged recuperation [...] follow-up arrangements were made down here in [place]. His family was instructed to contact you for follow-up in the next couple of weeks. Please do not hesitate to contact me if I can assist you in any other way in Lincoln's care. Very best regards, Troy Summers Jr., M.Sg., F.A.A.P. Coal Equipment Operator, Neurosurgery and Pediatrics DEVANTE/wanda P cc: ELVIN ENGEL MD [facility] OF NEURO SCIENCE [address] [facility] [address] [facility] [place] [address] documented in this encounter Plan of Treatment Not on filedocumented as of this encounter Visit Diagnoses Not on filedocumented in this encounter"
--- OUTSIDE RECORDS SUMMARY | ~2019-06-07 | XMS | Encounter Summary ---
Demographics + + + | Address | [address] [facility] | | | [place] [address] | + + + | Home Phone | | + + + | Preferred Language | Unknown | + + + | Marital Status | Single | + + + | Confucianist Affiliation | 1041 | + + + | Race | Unknown | + + + | Ethnic Group | Unknown | + + + Author + + + | Author | [facility] | | | and Jaisonana | + + + | Organization | [facility] | | | and Jaisonana [...] Team Providers + +------+ + | Care Side Show Entertainer Name | Role | Phone | + [...] Sergey SINGH | | | | | [phone] | [place] [address] | | +--------+ + + + + [...]
--- OUTSIDE RECORDS SUMMARY | ~2019-06-07 | XMS | Clinical Summary ---
Demographics + + + | Address | [address] | | | [place] [address] | + + + | Home Phone | | + + + | Preferred Language | Unknown | + + + | Marital Status | Single | + + + | Druze Affiliation | CAT | + + + [...] [place] | | | | | [address] | | + + + + + Care Team Providers + +------+ + | Care Metal Sprayer Production Name | Role | Phone | + +------+ + PCP | Unavailable | + +------+ + Source Comments CINTHIA is fully live on both [facility] Ambulatory and [facility] InPatient.[facility] Allergies No Known Allergies Medications Not on [...]
--- OUTSIDE RECORDS SUMMARY | ~2019-06-07 | XMS | Encounter Summary ---
Demographics + + + | Address | [address] [facility] | | | [place] [address] | + + + | Home Phone | | + + + | Preferred Language | Unknown | + + + | Marital Status | Single | + + + | Baptism Affiliation | 1041 | + + + | Race | Unknown | + + + | Ethnic Group | Unknown | + + + Author + + + | Author | [facility] | | | and Jaisonana | + + + | Organization | [facility] | | | and Jaisonana [...] Team Providers + +------+ + | Care Respiratory Scientist Name | Role | Phone | + [...] [address] | | | | | [place], | [place] | | | | | [place] [address] | [place] [address] | | | | | [phone] | [phone] | | | | | | | [...]
--- OUTSIDE RECORDS SUMMARY | ~2019-06-07 | XMS | Clinical Summary ---
Demographics + + + | Address | [address] [facility] | | | [place] [address] | + + + | Home Phone | | + + + | Preferred Language | Unknown | + + + | Marital Status | Single | + + + | Yazdanism Affiliation | 1041 | + + + | Race | Unknown | + + + | Ethnic Group | Unknown | + + + Author + + + | Author | [facility] | | | and Jaisonana | + + + | Organization | [facility] | | | and [...] Team Providers + +------+ + | Care Poultry Offal Icer Name | Role | Phone | + +------+ + | Juan Underwood SENIOR PROCESS ANALYST | PCP | | + +------+ + [...] +--------+ +---------+--------+ | GEHA | GEHA | [id number] | 01/30/20 | [phone] | | PPO | | | [employer]ETNA | | 17-Pre | 6 | | | | | PPO | | sent | | | | + +--------+ +--------+ +---------+--------+ | MEDICAID [place] | MEDICA | [id number] | | [phone] | | Medica | [...] [place] | | | 7 (Home) | [address] | + +--------+ +--------+ + + Advance Directives + + + + + | Type | Date Recorded | Patient | Explanation | | | | Tour Leader | | + + + + + | Power of | | | | | Mock Up Builder | | | | + + + + + | Advance | | | | | Directive | | | | + + + + +
--- OUTSIDE RECORDS SUMMARY | ~2019-06-07 | XMS | Encounter Summary ---
Demographics + + + | Address | [address] [facility] | | | [place] [address] | + + + | Home Phone | | + + + | Preferred Language | Unknown | + + + | Marital Status | Single | + + + | Synagogue Affiliation | 1041 | + + + | Race | Unknown | + + + | Ethnic Group | Unknown | + + + Author + + + | Author | [facility] | | | and Jaisonana | + + + | Organization | [facility] | | | and Jaisonana [...] Team Providers + +------+ + | Care Fur Puller Name | Role | Phone | + [...] Sergey SINGH | | | | | [phone] | [place] [address] | | +--------+ + + + + [...] for comparison only - no result from [place]. | [facility] | + + + + +---------+ + + | Performing | Address | City/State/Zipcode | Phone Number | | Organization | | | | + +---------+ + + | [facility] | | | | + +---------+ + + documented in this encounter Visit Diagnoses Not on filedocumented in this encounter"
--- OUTSIDE RECORDS SUMMARY | ~2019-06-07 | XMS | Encounter Summary ---
Demographics + + + | Address | [address] | | | [place] [address] | + + + | Home Phone | | + + + | Preferred Language | Unknown | + + + | Marital Status | Single | + + + | Confucianist Affiliation | CAT | + + + | Race | White | + + + | Ethnic Group | Not or | + + + Author + + + | Author | [facility] | + + + | Organization | [facility] | + + + | Address | Unknown | + + + | Phone | Unavailable | + + + Support + + + + + | Name | Relationship | Address | Phone | + + + + + | Malinda Perdomo | ECON | [address] | | | | | [place] | | | | | [address] | | + + + + + Care Team Providers + +------+ + | Care Ship Scaler Name | Role | Phone | + [...] [address] | | | | | | [place], [place] | | | | | | [address] | | | +--------+ + + + [...]
--- OUTSIDE RECORDS SUMMARY | ~2019-06-07 | XMS | Encounter Summary ---
Demographics + + + | Address | [address] | | | [place] [address] | + + + | Home Phone | | + + + | Preferred Language | Unknown | + + + | Marital Status | Single | + + + | Protestant Affiliation | CAT | + + + [...] [place] | | | | | [address] | | + + + + + Care Team Providers + +------+ + | Care Confectionery Maker Name | Role | Phone | + +------+ + PCP | Unavailable | + +------+ + Encounter Details +--------+ + + + + | Date | Type | Department | Care Team | Description | +--------+ + + + + | 11/06/ | Results | | Other, Faculty | | | 1996 | Only | | [phone] | | +--------+ + + + + [...] | | + +---------+ + + | [facility] | | | | | RADIOLOGY | | | | + +---------+ + + documented in this encounter Visit Diagnoses Not on filedocumented in this encounter"
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
[2019-06-07] MEDS ORDERED: PREDNISONE20 MG PO (07:43)
== END 2019-06-07 10:09 | disposition home or self-care (01) ==
LOC: ED 06:02
DX: S93.401A Sprain of unspecified ligament of right ankle, initial encounter (principal); R11.2 Nausea with vomiting, unspecified; R19.7 Diarrhea, unspecified; J45.909 Unspecified asthma, uncomplicated; Z79.899 Other long term (current) drug therapy; Z79.51 Long term (current) use of inhaled steroids; X50.1XXA Overexertion from prolonged static or awkward postures, initial encounter; Y93.89 Activity, other specified
CPT/HCPCS: 71046; 73610; 80053; 83690; 85025; 96374; 96375; 99284-25; J2405; J2930; J7030

== ENCOUNTER 2019-08-14 05:52 | Emergency (ER) | payer MEDICARE, OTHER ==
[~2019-08-14] VITALS: Ht 170.2 cm; Wt 81.7 kg
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
[2019-08-14] MEDS ORDERED: TRAMADOL HCL50 MG PO (06:59)
[2019-08-14] MEDS ORDERED: DICLOFENAC SODI75 MG PO (06:59)
[2019-08-14] MEDS ORDERED: CRUTCH1 EACH (07:03)
== END 2019-08-14 07:13 | disposition home or self-care (01) ==
LOC: ED 05:52
DX: S76.011A Strain of muscle, fascia and tendon of right hip, initial encounter (principal); W01.198A Fall on same level from slipping, tripping and stumbling with subsequent striking against other object, initial encounter; J45.909 Unspecified asthma, uncomplicated; Z87.891 Personal history of nicotine dependence
CPT/HCPCS: 73502; 99284-25

== ENCOUNTER 2019-09-15 17:50 | Emergency (ER) | payer MEDICARE ==
[~2019-09-15] VITALS: Ht 170.2 cm; Wt 81.7 kg
[~2019-09-15 17:50] MED LIST changes: +CRUTCH1 EACH; +DICLOFENAC SODI75 MG PO
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
[2019-09-15] MEDS ORDERED: PROVENTIL HFA6.7 GM INH (19:05)
[2019-09-15] MEDS ORDERED: MEDROL4 M1 PO (19:05)
== END 2019-09-15 19:15 | disposition home or self-care (01) ==
LOC: ED 17:50
DX: J45.901 Unspecified asthma with (acute) exacerbation (principal); F17.200 Nicotine dependence, unspecified, uncomplicated; Z79.899 Other long term (current) drug therapy
CPT/HCPCS: 99284

== ENCOUNTER 2020-01-12 11:59 | Emergency (ER) | payer OTHER, BC, MEDICARE ==
[~2020-01-12] VITALS: Ht 170.2 cm; Wt 81.7 kg
--- OUTSIDE RECORDS SUMMARY | 2020-01-12 12:02 | XMS ---
PreManage Notification: ADILSON JACOB Security Chemist Physical Events No recent Security Events currently on file CRITERIA MET - [facility] - [place] - Has Care Guidelines CARE PROVIDERS LUIS ENRIQUE العراقي Nurse Practitioner: Family 01/05/2019-Current PHONE: [phone] TANIA WARREN Physician Special Events Manager 08/15/2019-Current PHONE: [phone] Tamanna has no Care Guidelines for this patient. Care History Medical/Surgical 09/19/2019 [facility] Made contact with primary care Tania Warren. Based on the Global asthma guideline the recommendation was made to start patient on inhaled ICS and long acting Bronchodilator with as needed TENA. Primary care also informed of cardiopulmonary services; inhaler training and smoking cessation program available to this patient if so inclined. 08/15/2019 [facility] - PATIENT ESTABLISHED CARE WITH TANIA WARREN 02/2019. PATIENT HAS NOT BEEN SEEN SINCE ESTABLISHING CARE WITH PROVIDER. - CHW WILL HAVE ALL ED RECORDS SEND TO PROVIDER OFFICE FOR REVIEW AND FOLLOW UP. 06/08/2019 [facility] - PATIENT CONTACT NUMBER IS NO LONGER IN SERVICEPLEASE HAVE PATIENT PROVIDE ACTIVE CONTACT NUMBER - SENT PATIENT NO PCP LETTER. Tamy VISIT COUNT (12 MO.) [address] [facility] TOTAL 4 NOTE: Visits indicate total known visits. ED/UCC VISIT TRACKING (12 MO.) 01/12/2020 11:59 [facility] TYPE: Emergency COMPLAINT: - EYE PAIN 09/15/2019 17:50 [facility] TYPE: Emergency COMPLAINT: - SOB DIAGNOSES: - Nicotine dependence, unspecified, uncomplicated - Other fdc (current) drug therapy - Shortness of breath - Unspecified asthma with (acute) exacerbation 08/14/2019 05:52 [facility] TYPE: Emergency COMPLAINT: - HIP PAIN, SOB DIAGNOSES: - Unspecified asthma, uncomplicated - Strain of muscle, fascia and tendon of right hip, initial enc - Fall on same level from slipping, tripping and stumbling with - Personal history of nicotine dependence - Pain in right hip 06/07/2019 06:02 [facility] TYPE: Emergency COMPLAINT: - SOB DIAGNOSES: - Unspecified asthma, uncomplicated - Wheezing - Other fdc (current) drug therapy - Overexertion from prolonged static or awkward postures, initi - Nausea with vomiting, unspecified - care home (current) use of inhaled steroids - Sprain of unspecified ligament of right ankle, initial encoun - Activity, other specified - Diarrhea, unspecified INPATIENT VISIT TRACKING (12 MO.) No inpatient visits to display in this time frame [email or web address]
[2020-01-12] MEDS ORDERED: ERYTHROMYCIN1 GM OP (12:34)
== END 2020-01-12 12:10 | disposition home or self-care (01) ==
LOC: ED 11:59
DX: S05.01XA Injury of conjunctiva and corneal abrasion without foreign body, right eye, initial encounter (principal); J45.909 Unspecified asthma, uncomplicated; Z79.899 Other long term (current) drug therapy; W22.8XXA Striking against or struck by other objects, initial encounter; Y99.0 Civilian activity done for income or pay
CPT/HCPCS: 99283

== ENCOUNTER 2021-03-01 19:24 | Emergency (ER) | payer MEDICARE, OTHER ==
[~2021-03-01] VITALS: Ht 170.2 cm; Wt 81.7 kg
[~2021-03-01 19:24] MED LIST changes: +ERYTHROMYCIN1 GM OP
--- OUTSIDE RECORDS SUMMARY | 2021-03-01 19:28 | XMS ---
PreManage Notification: ADILSON JACOB Security Territory Account Representative Events No recent Security Events currently on file CRITERIA MET - [facility] - [place] - Has Care Guidelines CARE PROVIDERS LUIS ENRIQUE العراقي Nurse Practitioner: Family 01/05/2019-Current PHONE: [phone] TANIA WARREN Physician Website Developer 08/15/2019-Current PHONE: [phone] Tamanna has no Care Guidelines for this patient. Care History Medical/Surgical 09/19/2019 [facility] Made contact with primary care Tania Warren. Based on the Global asthma guideline the recommendation was made to start patient on inhaled ICS and long acting Bronchodilator with as needed TENA. Primary care also informed of cardiopulmonary services; inhaler training and smoking cessation program available to this patient if so inclined. 08/15/2019 [facility] - PATIENT ESTABLISHED CARE WITH TANIA WARREN 02/2019. PATIENT HAS NOT BEEN SEEN SINCE ESTABLISHING CARE WITH PROVIDER. - CHW WILL HAVE ALL ED RECORDS SEND TO PROVIDER OFFICE FOR REVIEW AND FOLLOW UP. 06/08/2019 [facility] - PATIENT CONTACT NUMBER IS NO LONGER IN SERVICEPLEASE HAVE PATIENT PROVIDE ACTIVE CONTACT NUMBER - SENT PATIENT NO PCP LETTER. Tamy VISIT COUNT (12 MO.) [address] [facility] TOTAL 1 NOTE: Visits indicate total known visits. ED/UCC VISIT TRACKING (12 MO.) 03/01/2021 19:26 [facility] [place] TYPE: Emergency COMPLAINT: - TWISTED ANKLE, AND HAVING A HARD TIME BREATHING INPATIENT VISIT TRACKING (12 MO.) No inpatient visits to display in this time frame [id number]
[2021-03-01] MEDS ORDERED: IBU600 MG PO (22:32)
[2021-03-01] MEDS ORDERED: CRUTCH1 EACH MISC (22:33)
== END 2021-03-01 22:47 | disposition home or self-care (01) ==
LOC: ED 19:24
DX: S93.402A Sprain of unspecified ligament of left ankle, initial encounter (principal); X50.9XXA Other and unspecified overexertion or strenuous movements or postures, initial encounter; J45.909 Unspecified asthma, uncomplicated; Z79.899 Other long term (current) drug therapy
CPT/HCPCS: 73610; 99283-25; A9270

== ENCOUNTER 2022-07-08 20:14 | Emergency (ER) | payer MEDICARE, OTHER ==
[~2022-07-08] VITALS: Ht 170.2 cm; Wt 93.5 kg
[~2022-07-08 20:14] MED LIST changes: +CRUTCH1 EACH MISC; +IBU600 MG PO
[2022-07-09] MEDS ORDERED: PREDNISONE20 MG PO (03:34)
[2022-07-09] MEDS ORDERED: METHOCARBAMOL750 MG PO (03:34)
== END 2022-07-09 04:30 | disposition home or self-care (01) ==
LOC: ED 20:14
DX: S29.011A Strain of muscle and tendon of front wall of thorax, initial encounter (principal); J45.909 Unspecified asthma, uncomplicated; K21.9 Gastro-esophageal reflux disease without esophagitis; Z20.822 Contact with and (suspected) exposure to COVID-19; Z79.899 Other long term (current) drug therapy; X58.XXXA Exposure to other specified factors, initial encounter
CPT/HCPCS: 36415; 71045; 74177; 80053; 81001; 83690; 85025; 87502; 93005; 93010; 94640; 96375; 99285-25; C9803; J1885; J2405; J3010; J7030; Q9967; U0003

== ENCOUNTER 2024-10-22 09:40 | Emergency (ER) | payer MEDICARE, OTHER ==
[~2024-10-22] VITALS: Ht 170.2 cm; Wt 90.5 kg
[~2024-10-22 09:40] MED LIST changes: +BREO ELLIPTA 21 EACH INH; +METHOCARBAMOL750 MG PO; +MONTELUKAST SOD10 MG PO; +REGLAN10 MG PO
[2024-10-22 09:57] LABS: BASOPHILS 0.3 % (0-2); EOSINOPHILS 8.6 % (0-6); HEMATOCRIT 47.5 % (35.0-50.0); HEMOGLOBIN 16.4 g/dL (12.0-18.0); LYMPHOCYTES 12.9 % (24-44); MCH 28.1 (27-36); MCHC 34.6 g/dl (30-36); MCV 81.4 fl (81-99); MONOCYTES 8.7 % (0-12); NEUTROPHILS 69.5 % (39-80); PLATELET COUNT 207 K/uL (140-440); RBC 5.84 M/ul (4.3-5.7); RDW 13.7 (10.5-15.0)
[2024-10-22] MEDS ORDERED: methylPREDNISolone SOD SUCC 125 MG/2 ML VIAL IV ONE (10:00)
[2024-10-22] MEDS ORDERED: ALBUTEROL/IPRATROPIUM 3 ML NEB INH PRN (10:00)
[2024-10-22 10:08] LABS: INR 1.05 (0.80-1.30); PROTIME 13.6 Sec (11.2-14.2)
[2024-10-22 10:10] LABS: PARTIAL THROMBOPLASTIN TIME 31.5 Sec (22.9-41.3)
[2024-10-22 10:17] LABS: CORONAVIRUS COVID-19 AG NEGATIVE (NEGATIVE); INFLUENZA A AG NEGATIVE (NEGATIVE); INFLUENZA B AG NEGATIVE (NEGATIVE)
[2024-10-22 10:22] LABS: ALBUMIN 4.4 g/dL (3.4-5.0); ALBUMIN/GLOBULIN RATIO 1.33 (1.1-2.4); ALKALINE PHOSPHATASE 109 U/L (46-116); ALT (SGPT) 39 U/L (14-59); ANION GAP 12.8 (7-21); AST (SGOT) 19 U/L (15-37); BILIRUBIN, TOTAL 0.6 mg/dL (0.2-1.0); BUN/CREATININE RATIO 7.61 (6.0-28.6); CALCIUM 8.7 mg/dL (8.5-10.1); CARBON DIOXIDE 30 mmol/L (21-32); CHLORIDE 101 mmol/L (98-107); CREATININE, SERUM 1.05 mg/dL (0.70-1.30); GLOMERULAR FILTRATION RATE,EST 97 mL/min (>60); POTASSIUM 3.8 mmol/L (3.5-5.1); PROTEIN, TOTAL 7.7 g/dL (6.4-8.2); UREA NITROGEN 8 mg/dL (7-18)
[2024-10-22] MEDS ORDERED: ondansetron HCL 4 MG/2 ML VIAL IV ONE (10:30)
[2024-10-22] MEDS ORDERED: SODIUM CHLORIDE 0.9% 1,000 ML IV PRN (14:45)
[2024-10-22] MEDS ORDERED: VENTOLIN HFA18 GM INH (14:53)
[2024-10-22] MEDS ORDERED: PREDNISONE20 MG PO (14:53)
[2024-10-22] MEDS ORDERED: AMOX TR-K CLV1 EAC1 PO (15:00)
[2024-10-22] MEDS ORDERED: ZITHROMAX250 MG PO (15:00)
[2024-10-22 15:01] VITALS: BP 135/74
--- NOTE | 2024-10-22 21:30 | EKG ---
[facility] [address] [place] [id number] Signed Sinus tachycardia T wave abnormality, consider inferolateral ischemia Abnormal ECG No previous ECGs available Confirmed by Ifeanyi Jenkins DO ([id number]) on 10/22/2024 9:29:49 PM Electronically Signed By: IFEANYI JENKINS DO 10/22/242129 PATIENT NAME: ADILSON JACOB TIFFANY Electrocardiogram DATE OF : [birth year] PHYSICIAN: IFEANYI JENKINS DO REPORT #: [id number] REPORT IS CONFIDENTIAL AND NOT TO BE RELEASED WITHOUT AUTHORIZATION
== END 2024-10-22 15:14 | disposition home or self-care (01) ==
LOC: ED 09:40
PROVIDERS: Emergency Medicine
DX: J45.901 Unspecified asthma with (acute) exacerbation (principal); R07.9 Chest pain, unspecified; K21.9 Gastro-esophageal reflux disease without esophagitis; G43.909 Migraine, unspecified, not intractable, without status migrainosus
CPT/HCPCS: 36415; 71275; 74174; 80053; 83880; 84484; 85025; 85610; 85730; 93005; 93010; 94640; 99285-25; J2405; J2919; J7030; Q9967